=== PATIENT | female | born 1950 | race African-American/Black ===

== ENCOUNTER 2016-11-12 13:14 | Inpatient (IN) | payer OTHER ==
[2016-11-12 13:46] VITALS: BMI 36.2
--- NOTE | 2016-11-12 17:19 | HP ---
CIWA Score - CIWA Score Nausea/Vomitin-Mild Nausea/No Vomiting Muscle Tremors: 4-Moderate,w/Arms Extend Anxiety: 4-Mod. Anxious/Guarded Agitation: 4-Moderately Restless Paroxysmal Sweats: 1-Minimal Palms Moist Orientation: 0-Oriented Tacttile Disturbances: 0-None Auditory Disturbances: 0-None Visual Disturbances: 0-None Headache: 1-Very Mild CIWA-Ar Total Score: 15 Admission ROS S - HPI Chief Complaint: WITHDRAWAL SX Allergies/Adverse Reactions: Allergies Allergy/AdvReac Type Severity Reaction Status Date / Time tomato Allergy Severe Rash Verified 11/12/16 15:21 lactose Allergy Verified 11/12/16 15:21 No Known Drug Allergies Allergy Verified 11/12/16 15:21 History of Present Illness: 66 YEARS OLD FEMALE WITH LONG HISTORY OF ALCOHOL NICOTINE COCAINE DEPENDENCE, HAS HYPERTENSION, ASTHMA GERD, HYPERLIPIDEMIA, AND DEPRESSION IS ADMITTED TO DETOX Exam Limitations: No Limitations - Ebola screening Have you traveled outside of the country in the last 21 days: No Have you had contact with anyone from an Ebola affected area: No Have you been sick,other than usual withdrawal symptoms: No Do you have a fever: No - Review of Systems Constitutional: Changes in sleep, Weight Stable EENT: reports: No Symptoms Reported Respiratory: reports: SOB with Exertion Cardiac: reports: No Symptoms Reported GI: reports: Nausea, Poor Fluid Intake, Indigestion, Abdominal cramping : reports: No Symptoms Reported Musculoskeletal: reports: Back Pain, Joint Pain (RIGHT LEG X 3 YEARS) Integumentary: reports: No Symptoms Reported Neuro: reports: Tremors Endocrine: reports: No Symptoms Reported Hematology: reports: No Symptoms Reported Psychiatric: reports: Judgement Intact, Orientated x3, Anxious, Depressed Other Systems: Reviewed and Negative Patient History - Patient Medical History Hx Anemia: No Hx Asthma: Yes Hx Chronic Obstructive Pulmonary Disease (COPD): No 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) Hx Cardiac Disorders: No Hx Congestive Heart Failure: No Hx Hypertension: Yes Hx Hypercholesterolemia: Yes Hx Pacemaker: No HX Cerebrovascular Accident: Yes (2010) Hx Seizures: No Hx Dementia: No Hx Diabetes: No Hx Gastrointestinal Disorders: Yes (Hx of GERD) Hx Liver Disease: No Hx Genitourinary Disorders: No Hx Sexually Transmitted Disorders: No Hx Renal Disease (ESRD): No Hx Thyroid Disease: No Hx Human Immunodeficiency Virus (HIV): No (NEGATIVE HX) Hx Hepatitis C: No Hx Depression: Yes Hx Suicide Attempt: No Hx Bipolar Disorder: No Hx Schizophrenia: No - Patient Surgical History Past Surgical History: Yes Hx Neurologic Surgery: No Hx Cataract Extraction: No Hx Cardiac Surgery: No Hx Lung Surgery: No Hx Breast Surgery: No Hx Breast Biopsy: No Hx Abdominal Surgery: No Hx Appendectomy: No Hx Cholecystectomy: No Hx Genitourinary Surgery: No Hx Section: No Hx Orthopedic Surgery: Yes (R knee arthrocsopic sx) Hx Hysterectomy: No Other Surgical History: L neck sx for removal of lymph nodes in 2009 Anesthesia Reaction: No - PPD History Previous Implant?: Yes Documented Results: Negative w/proof Implanted On Prior [facility] Admission?: Yes Date: 12/19/15 Results: 0 mm PPD to be Administered?: No - Reproductive History Patient is a Female of Child Bearing Age (11 -55 yrs old): No Patient : No - Smoking Cessation Smoking history: Current every day smoker Have you smoked in the past 12 months: Yes Aproximately how many cigarettes per day: 20 Hx Chewing Tobacco Use: No Initiated information on smoking cessation: Yes 'Breaking Loose' booklet given: 11/12/16 - Substance & Tx. History Hx Alcohol Use: Yes Hx Substance Use: Yes Substance Use Type: Alcohol, Cocaine Hx Substance Use Treatment: Yes (12/16-12/22/15 [facility] - Substances Abused Alcohol Route: Oral Frequency: Daily Amount used: 1 pint vodka Age of first use: 18 Date of Last Use: 11/12/16 Cocaine Route: Inhalation Frequency: Daily Amount used: $80 Age of first use: 18 Date of Last Use: 11/12/16 Family Disease History - Family Disease History Family Disease History: CA: Father (), Sister, Other: Father, Mother ( DECESED/LIVER) Admission Physical Exam BHS - Vital Signs Vital Signs: Vital Signs - 24 hr 11/12/16 13:45 Temperature 98.1 F Pulse Rate 87 Respiratory 20 Rate Blood Pressure 151/82 - Physical General Appearance: Yes: Appropriately Dressed, Mild Distress, Tremorous, Irritable, Sweating, Anxious HEENTM: Yes: Hearing grossly Normal, Normal ENT Inspection, Normocephalic, Normal Voice Respiratory: Yes: Chest Non-Tender, No Respiratory Distress, No Accessory Muscle Use, Wheezing Neck: Yes: Supple, Trachea in good position Breast: Yes: Breasts Symetrical Cardiology: Yes: Regular Rhythm, Regular Rate, S1, S2 Abdominal: Yes: Non Tender, Soft Genitourinary: Yes: Within Normal Limits Back: Yes: Normal Inspection Musculoskeletal: Yes: full range of Motion, Gait Steady, Back pain, Muscle Pain (RIGHT KNEE) Extremities: Yes: Normal Range of Motion, Non-Tender, Tremors, Swelling (RIGHT KNEE) Neurological: Yes: Fully Oriented, Alert, Motor Strength 5/5, Normal Response, Depressed Affect Integumentary: Yes: Warm Lymphatic: Yes: Within Normal Limits - Diagnostic (1) Asthma Current Visit: Yes Status: Chronic Qualifiers: Asthma severity: mild persistent (2) Alcohol dependence with uncomplicated withdrawal Current Visit: Yes Status: Acute (3) Cocaine dependence, uncomplicated Current Visit: Yes Status: Chronic (4) Hypercholesteremia Current Visit: Yes Status: Chronic (5) Hypertension Current Visit: Yes Status: Chronic Qualifiers: Hypertension type: essential hypertension Qualified Code(s): I10 - Essential (primary) hypertension (6) GERD (gastroesophageal reflux disease) Current Visit: Yes Status: Chronic Qualifiers: Esophagitis presence: without esophagitis Qualified Code(s): K21.9 - Gastro-esophageal reflux disease without esophagitis (7) Right leg pain Current Visit: Yes Status: Chronic Cleared for Admission [facility] - Detox or Rehab [facility] Level of Care: Medically Managed Detox Regimen/Protocol: Librium [facility] Breath Alcohol Content Breath Alcohol Content: 0.008 Urine Pregancy Test - Result Urine Test Results: Negative- NO Line Present Urine Drug Screen - Results Drug Screen Negative: No Urine Drug Screen Results: PATRICIA-Cocaine
[2016-11-12] MEDS ORDERED: P-EPHED 60MG/TRIPROLIDI 2.5MG TABLET PO PRN (17:24)
[2016-11-12] MEDS ORDERED: NICOTINE POLACRILEX 4 MG GUM BC PRN (17:24)
[2016-11-12] MEDS ORDERED: LOPERAMIDE HCL 2 MG CAPSULE PO PRN (17:24)
[2016-11-12] MEDS ORDERED: MAGNESIUM CITRATE 300 ML BOTTLE PO PRN (17:24)
[2016-11-12] MEDS ORDERED: MAG HYDROX/AL HYDROX/SIMETH 30 ML UNIT-DOSE CUP PO PRN (17:24)
[2016-11-12] MEDS ORDERED: MAGNESIUM HYDROX 2400MG/30ML ORAL SUSPENSION 30 ML CUP PO PRN (17:24)
[2016-11-12] MEDS ORDERED: hydrOXYzine PAMOATE 50 MG CAPSULE (FP) PO PRN (17:24)
[2016-11-12] MEDS ORDERED: MENTHOL/PHENOL 1 EACH UD MM PRN (17:24)
[2016-11-12] MEDS ORDERED: NICOTINE 21 MG/24 HOURS TOPICAL PATCH TD PRN (17:24)
[2016-11-12] MEDS ORDERED: guaiFENesin/D-METHORPHAN HB 10 ML UNIT-DOSE CUPS PO PRN (17:24)
[2016-11-12] MEDS ORDERED: chlordiazePOXIDE HCL 25 MG CAPSULE PO PRN (17:24)
[2016-11-12] MEDS ORDERED: diphenhydrAMINE HCL 50 MG CAPSULE PO PRN (17:24)
[2016-11-12] MEDS ORDERED: ALBUTEROL SO4 2.5/IPRATROPIUM 0.5 INH SOL 3 ML VIAL.NEB. NEB PRN (17:27)
[2016-11-12] MEDS ORDERED: ALBUTEROL SO4 6.7 GM HFA INHALER IH PRN (17:27)
[2016-11-12] MEDS ORDERED: ATORVASTATIN CA 20 MG TABLET (FP) ONE (21:31)
[2016-11-12 21:34] LABS: URINE APPEARANCE SL CLOUDY; URINE BILIRUBIN 1+ (NEGATIVE); URINE BLOOD NEGATIVE (NEGATIVE); URINE COLOR LT. YELLOW; URINE GLUCOSE (UA) NEGATIVE (NEGATIVE); URINE KETONE 1+ (NEGATIVE); URINE LEUK ESTERASE NEGATIVE (NEGATIVE); URINE NITRITE NEGATIVE (NEGATIVE); URINE PROTEIN NEGATIVE (NEGATIVE)
[2016-11-12] MEDS: METHYL SALICYLATE/MENTHOL OINT 30 GM TUBE TP SCH (22:32)
[2016-11-12] MEDS: RANITIDINE HCL 150 MG TABLET (FP) PO SCH (22:33)
[2016-11-12] MEDS: ATORVASTATIN CA 40 MG TABLET (FP) PO SCH (22:33)
[2016-11-12] MEDS: THIAMINE HCL 100 MG TABLET (FP) PO SCH (22:33)
[2016-11-12] MEDS: chlordiazePOXIDE HCL 25 MG CAPSULE PO SCH (22:34)
[2016-11-13] MEDS: chlordiazePOXIDE HCL 25 MG CAPSULE PO SCH ×4 (06:13→22:31)
[2016-11-13] MEDS: ACETAMINOPHEN 325 MG TABLET (FP) PO PRN (06:13)
[2016-11-13 10:25] LABS: MCH 27.5 pg (25.7-33.7); MCHC 32.6 g/dl (32.0-36.0); MEAN CELL VOLUME 84.4 fl (80-96); MEAN PLT VOLUME 8.6 fl (7.5-11.1); PLATELET COUNT 222 K/MM3 (134-434); RDW 16.1 % (11.6-15.6)
[2016-11-13] MEDS: ASPIRIN 81 MG CHEWABLE TABLETS PO SCH (10:42)
[2016-11-13] MEDS: PRENATAL VITAMINS W/ FOLIC ACID TABLET (FP) PO SCH (10:42)
[2016-11-13] MEDS: amLODIPine BESYLATE 10 MG TABLET (FP) PO SCH (10:42)
[2016-11-13] MEDS: RANITIDINE HCL 150 MG TABLET (FP) PO SCH ×2 (10:42→22:30)
[2016-11-13] MEDS: METHYL SALICYLATE/MENTHOL OINT 30 GM TUBE TP SCH ×2 (10:43→23:31)
[2016-11-13 10:46] LABS: ALBUMIN 3.4 g/dl (3.4-5.0); ANION GAP 7 (8-16); CALCIUM 9.7 mg/dL (8.5-10.1); CO2 31 mmol/L (21-32); CREATININE 0.9 mg/dL (0.55-1.02); GLUCOSE,RANDOM 86 mg/dL (74-106); SGOT/AST 18 U/L (15-37); SGPT/ALT 23 U/L (12-78)
[2016-11-13 10:48] LABS: ALK PHOS 115 U/L (45-117); BILIRUBIN,TOTAL 0.7 mg/dL (0.2-1.0); TOT PROT 6.5 g/dl (6.4-8.2)
--- NOTE | 2016-11-13 12:07 | PN ---
BHS CIWA - CIWA Score Nausea/Vomitin Muscle Tremors: 4-Moderate,w/Arms Extend Anxiety: 4-Mod. Anxious/Guarded Agitation: 4-Moderately Restless Paroxysmal Sweats: 3 Orientation: 0-Oriented Tacttile Disturbances: 1-Very Mild Itch/Numbness Auditory Disturbances: 0-None Visual Disturbances: 0-None Headache: 1-Very Mild CIWA-Ar Total Score: 20 BHS Progress Note (SOAP) Subjective: nausea, sweats, itnerrupted sleep, anxiety, tremors Objective: 11/13/16 12:06 Vital Signs - 8 hr 11/13/16 11/13/16 06:00 10:26 Temperature 97.7 F 96.8 F L Pulse Rate 61 77 Respiratory 18 18 Rate Blood Pressure 126/77 130/76 Laboratory Tests 11/12/16 11/13/16 11/13/16 21:20 07:00 07:00 WBC 4.0 RBC 4.55 Hgb 12.5 Hct 38.4 MCV 84.4 MCH 27.5 MCHC 32.6 RDW 16.1 H Plt Count 222 MPV 8.6 Sodium 145 Potassium 4.0 Chloride 107 Carbon Dioxide 31 Anion Gap 7 L BUN 11 Creatinine 0.9 Creat Clearance w eGFR > 60 Random Glucose 86 Calcium 9.7 Total Bilirubin 0.7 D AST 18 ALT 23 Alkaline Phosphatase 115 Total Protein 6.5 Albumin 3.4 Urine Color Lt. yellow Urine Appearance Sl cloudy Urine pH 6.0 Ur Specific [place] 1.020 Urine Protein Negative Urine Glucose (UA) Negative Urine Ketones 1+ H Urine Blood Negative Urine Nitrite Negative Urine Bilirubin 1+ H Urine Urobilinogen 1.0 Ur Leukocyte Esterase Negative Assessment: 11/13/16 12:07 withdrawal sx Plan: cont detox, fluids
--- NOTE | 2016-11-13 12:55 | EKG ---
Test Reason : Blood Pressure : / mmHG Vent. Rate : 066 BPM Atrial Rate : 066 BPM P-R Int : 174 ms QRS Dur : 070 ms QT Int : 366 ms P-R-T Axes : 066 042 008 degrees QTc Int : 383 ms NORMAL SINUS RHYTHM ATRIAL ABNORMALITY NONSPECIFIC ST AND T WAVE ABNORMALITY ABNORMAL ECG NO PREVIOUS ECGS AVAILABLE REPEAT EKG IF CLINICALLY INDICATED Confirmed by MINA VIRGEN MD ([id number]) on 11/13/2016 12:55:31 PM Referred By: Reji Small Confirmed By:IMNA VIRGEN MD
[2016-11-13] MEDS: PANTOPRAZOLE 40 MG TABLET (FP) PO SCH (15:08)
--- NOTE | 2016-11-13 15:52 | CONSULT ---
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 Substance Abuse History: Confirmed by patient. Smoking Cessation. Smoking history: Current every day smoker. Have you smoked in the past 12 months: Yes. Aproximately how many cigarettes per day: 20. Hx Chewing Tobacco Use: No. Initiated information on smoking cessation: Yes. 'Breaking Loose' booklet given : 11/12/16. - Substance & Tx. History. Hx Alcohol Use: Yes. Hx Substance Use : Yes. Substance Use Type: Alcohol, Cocaine. Hx Substance Use Treatment: Yes ( 12/16-12/22/15 [facility]). - Substances Abused. Alcohol. Route: Oral. Frequency: Daily. Amount used: 1 pint vodka. Age of first use: 18. Date of Last Use: 11/12/16. Cocaine. Route: Inhalation. Frequency: Daily. Amount used: $80. Age of first use: 18. 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 Psychiatric History: No reported history of psychiatric hospitalizations.Patient admits to the diagnosis of Major Depressive Disorder.She used to attend psychiatric OPD care at [facility] clinic four years ago.Prescribed citalopram 20 mg/day.Ms Hutchinson indicates that she has been lost to follow up " for some time ",a reference to 3-4 weeks of non -adherence to medications.No OPD care provider at this time.Patient is known to [facility] (resided there from 2003 to 2008).No history of suicide attempts ( self-report). Physical/Sexual Abuse/Trauma History: Patient denies history of sexual abuse. Additional Comment: Urine Drug Screen Results: PATRICIA-Cocaine.Noted. Mental Status Exam - Mental Status Exam Alert and Oriented to: Time, Place, Person Cognitive Function: Good Patient Appearance: Well Groomed Mood: Hopeful, Euthymic (pleasant and well-mannered) Affect: Appropriate, Normal Range Patient Behavior: Appropriate, Cooperative Speech Pattern: Clear, Slurred (slightly slurred from past CVA) Voice Loudness: Normal Thought Process: Intact, Goal Oriented Thought Disorder: Not Present Hallucinations: Denies Suicidal Ideation: Denies Homicidal Ideation: Denies Insight/Judgement: Poor Sleep: Well Appetite: Good Gait/Station: Normal Psychiatric Findings - Problem List (Mittie 1, 2,3) (1) Alcohol dependence with uncomplicated withdrawal Current Visit: Yes Status: Acute (2) Cocaine dependence, uncomplicated Current Visit: Yes Status: Acute (3) Nicotine dependence Current Visit: Yes Status: Acute (4) Drug-induced mood disorder Current Visit: Yes Status: Acute (5) Depressive disorder Current Visit: Yes Status: Chronic (6) Asthma Current Visit: Yes Status: Chronic Qualifiers: Asthma severity: mild persistent (7) GERD (gastroesophageal reflux disease) Current Visit: Yes Status: Chronic Qualifiers: Esophagitis presence: without esophagitis Qualified Code(s): K21.9 - Gastro-esophageal reflux disease without esophagitis (8) Hypercholesteremia Current Visit: Yes Status: Chronic (9) Hypertension Current Visit: Yes Status: Chronic Qualifiers: Hypertension type: essential hypertension Qualified Code(s): I10 - Essential (primary) hypertension (10) Right leg pain Current Visit: Yes Status: Chronic (11) Cancer Current Visit: No Status: Chronic - Initial Treatment Plan Initial Treatment Plan: Psychoeducation.Detoxification.Citalopram 20 mg po daily (confirmed by script dated 09/06/16 at [facility]).Side effects/ benfits discussed with patient.She agrees with this careplan.Observation.
[2016-11-13] MEDS ORDERED: ATORVASTATIN CA 20 MG TABLET (FP) ONE (21:22)
[2016-11-13] MEDS: THIAMINE HCL 100 MG TABLET (FP) PO SCH (22:30)
[2016-11-13] MEDS: ATORVASTATIN CA 40 MG TABLET (FP) PO SCH (22:31)
[2016-11-14] MEDS: chlordiazePOXIDE HCL 25 MG CAPSULE PO SCH ×3 (05:39→18:12)
[2016-11-14] MEDS: ACETAMINOPHEN 325 MG TABLET (FP) PO PRN (05:44)
[2016-11-14] MEDS: RANITIDINE HCL 150 MG TABLET (FP) PO SCH ×2 (10:43→22:25)
[2016-11-14] MEDS: ASPIRIN 81 MG CHEWABLE TABLETS PO SCH (10:43)
[2016-11-14] MEDS: amLODIPine BESYLATE 10 MG TABLET (FP) PO SCH (10:43)
[2016-11-14] MEDS: CITALOPRAM HYDROBROMIDE 20 MG TABLET (FP) PO SCH (10:43)
[2016-11-14] MEDS: PANTOPRAZOLE 40 MG TABLET (FP) PO SCH (10:43)
[2016-11-14] MEDS: PRENATAL VITAMINS W/ FOLIC ACID TABLET (FP) PO SCH (10:43)
--- NOTE | 2016-11-14 10:43 | PN ---
S CIWA - CIWA Score Nausea/Vomitin Muscle Tremors: 4-Moderate,w/Arms Extend Anxiety: 4-Mod. Anxious/Guarded Agitation: 4-Moderately Restless Paroxysmal Sweats: 3 Orientation: 0-Oriented Tacttile Disturbances: 1-Very Mild Itch/Numbness Auditory Disturbances: 0-None Visual Disturbances: 0-None Headache: 1-Very Mild CIWA-Ar Total Score: 20 BHS Progress Note (SOAP) Subjective: nausea, sweats, interrupted sleep,anxiety, tremors Objective: 11/14/16 10:42 Vital Signs - 8 hr 11/14/16 11/14/16 03:30 06:30 Temperature 97.3 F L Pulse Rate 75 Respiratory 18 18 Rate Blood Pressure 133/78 Laboratory Tests 11/12/16 11/13/16 11/13/16 21:20 07:00 07:00 WBC 4.0 RBC 4.55 Hgb 12.5 Hct 38.4 MCV 84.4 MCH 27.5 MCHC 32.6 RDW 16.1 H Plt Count 222 MPV 8.6 Sodium 145 Potassium 4.0 Chloride 107 Carbon Dioxide 31 Anion Gap 7 L BUN 11 Creatinine 0.9 Creat Clearance w eGFR > 60 Random Glucose 86 Calcium 9.7 Total Bilirubin 0.7 D AST 18 ALT 23 Alkaline Phosphatase 115 Total Protein 6.5 Albumin 3.4 Urine Color Lt. yellow Urine Appearance Sl cloudy Urine pH 6.0 Ur Specific [place] 1.020 Urine Protein Negative Urine Glucose (UA) Negative Urine Ketones 1+ H Urine Blood Negative Urine Nitrite Negative Urine Bilirubin 1+ H Urine Urobilinogen 1.0 Ur Leukocyte Esterase Negative RPR Titer 11/13/16 07:00 WBC RBC Hgb Hct MCV MCH MCHC RDW Plt Count MPV Sodium Potassium Chloride Carbon Dioxide Anion Gap BUN Creatinine Creat Clearance w eGFR Random Glucose Calcium Total Bilirubin AST ALT Alkaline Phosphatase Total Protein Albumin Urine Color Urine Appearance Urine pH Ur Specific [place] Urine Protein Urine Glucose (UA) Urine Ketones Urine Blood Urine Nitrite Urine Bilirubin Urine Urobilinogen Ur Leukocyte Esterase RPR Titer Nonreactive Assessment: 11/14/16 10:43 alyson barnett Plan: cont detox
[2016-11-14] MEDS: METHYL SALICYLATE/MENTHOL OINT 30 GM TUBE TP SCH ×2 (10:44→22:24)
[2016-11-14] MEDS ORDERED: ATORVASTATIN CA 20 MG TABLET (FP) ONE (21:52)
[2016-11-14] MEDS: traZODone HCL 50 MG TABLET (FP) PO SCH (22:25)
[2016-11-14] MEDS: chlordiazePOXIDE 5 MG CAPSULE PO SCH (22:25)
[2016-11-14] MEDS: THIAMINE HCL 100 MG TABLET (FP) PO SCH (22:25)
[2016-11-14] MEDS: ZOLPIDEM TARTRATE 5 MG TABLET PO PRN (22:25)
[2016-11-14] MEDS: ATORVASTATIN CA 40 MG TABLET (FP) PO SCH (22:26)
[2016-11-15] MEDS: chlordiazePOXIDE 5 MG CAPSULE PO SCH ×3 (06:15→17:49)
--- NOTE | 2016-11-15 09:50 | PN ---
BHS Progress Note (SOAP) Subjective: nausea, sweats, interrupted sleep, anxiety, tremors, requesting cane to ambulate with Objective: 11/15/16 09:49 Vital Signs - 24 hr 11/14/16 11/14/16 11/14/16 10:44 14:30 18:17 Temperature 97.7 F 97.5 F L 97.9 F Pulse Rate 72 83 73 Respiratory 18 18 18 Rate Blood Pressure 128/74 136/73 114/77 11/14/16 11/15/16 11/15/16 23:21 03:30 06:49 Temperature 97.9 F 97.2 F L Pulse Rate 97 H 90 Respiratory 20 18 20 Rate Blood Pressure 110/78 116/86 11/15/16 09:39 Temperature 96.3 F L Pulse Rate 97 H Respiratory 18 Rate Blood Pressure 112/72 Laboratory Tests 11/12/16 11/13/16 11/13/16 21:20 07:00 07:00 WBC 4.0 RBC 4.55 Hgb 12.5 Hct 38.4 MCV 84.4 MCH 27.5 MCHC 32.6 RDW 16.1 H Plt Count 222 MPV 8.6 Sodium 145 Potassium 4.0 Chloride 107 Carbon Dioxide 31 Anion Gap 7 L BUN 11 Creatinine 0.9 Creat Clearance w eGFR > 60 Random Glucose 86 Calcium 9.7 Total Bilirubin 0.7 D AST 18 ALT 23 Alkaline Phosphatase 115 Total Protein 6.5 Albumin 3.4 Urine Color Lt. yellow Urine Appearance Sl cloudy Urine pH 6.0 Ur Specific [place] 1.020 Urine Protein Negative Urine Glucose (UA) Negative Urine Ketones 1+ H Urine Blood Negative Urine Nitrite Negative Urine Bilirubin 1+ H Urine Urobilinogen 1.0 Ur Leukocyte Esterase Negative RPR Titer 11/13/16 07:00 WBC RBC Hgb Hct MCV MCH MCHC RDW Plt Count MPV Sodium Potassium Chloride Carbon Dioxide Anion Gap BUN Creatinine Creat Clearance w eGFR Random Glucose Calcium Total Bilirubin AST ALT Alkaline Phosphatase Total Protein Albumin Urine Color Urine Appearance Urine pH Ur Specific [place] Urine Protein Urine Glucose (UA) Urine Ketones Urine Blood Urine Nitrite Urine Bilirubin Urine Urobilinogen Ur Leukocyte Esterase RPR Titer Nonreactive Assessment: 11/15/16 09:49 withdrawal sx Plan: cont detox, order cane
[2016-11-15] MEDS: amLODIPine BESYLATE 10 MG TABLET (FP) PO SCH (10:45)
[2016-11-15] MEDS: ASPIRIN 81 MG CHEWABLE TABLETS PO SCH (10:46)
[2016-11-15] MEDS: PRENATAL VITAMINS W/ FOLIC ACID TABLET (FP) PO SCH (10:46)
[2016-11-15] MEDS: PANTOPRAZOLE 40 MG TABLET (FP) PO SCH (10:46)
[2016-11-15] MEDS: CITALOPRAM HYDROBROMIDE 20 MG TABLET (FP) PO SCH (10:46)
[2016-11-15] MEDS: METHYL SALICYLATE/MENTHOL OINT 30 GM TUBE TP SCH ×2 (10:48→22:35)
[2016-11-15] MEDS: RANITIDINE HCL 150 MG TABLET (FP) PO SCH (10:49)
[2016-11-15] MEDS: traZODone HCL 50 MG TABLET (FP) PO SCH (22:34)
[2016-11-15] MEDS: chlordiazePOXIDE HCL 10 MG CAPSULE PO SCH (22:34)
[2016-11-15] MEDS: ZOLPIDEM TARTRATE 5 MG TABLET PO PRN (22:34)
[2016-11-15] MEDS: THIAMINE HCL 100 MG TABLET (FP) PO SCH (22:34)
[2016-11-15] MEDS: ATORVASTATIN CA 40 MG TABLET (FP) PO SCH (22:34)
[2016-11-16] MEDS: chlordiazePOXIDE HCL 10 MG CAPSULE PO SCH (05:04)
[2016-11-16 06:26] VITALS: BP 103/70; PULSE 87; TEMP 96.4
--- NOTE | 2016-11-16 08:55 | DS ---
[facility] Detox Discharge Summary Admission Date: 11/12/16 Discharge Date: 11/16/16 - History Present History: Alcohol Dependence, Cocaine Dependence - Physical Exam Results Vital Signs: Vital Signs Temperature 96.4 F L 11/16/16 06:00 Pulse Rate 87 11/16/16 06:00 Respiratory Rate 18 11/16/16 06:00 Blood Pressure 103/70 11/16/16 06:00 O2 Sat by Pulse Oximetry (%) - Treatment Hospital Course: Detox Protocol Followed, Detoxed Safely, Responded well, Discharged Condition Good, Rehab Referral Accepted - Medication Discharge Medications: Ambulatory Orders Albuterol Sulfate Inhaler - [Ventolin Hfa Inhaler -] 2 inh PO Q4H PRN 11/07/14 Omeprazole [Prilosec] 40 mg PO DAILY 11/07/14 Amlodipine Besylate [Norvasc -] 10 mg PO DAILY #30 tablet 11/11/14 Aspirin [ASA -] 81 mg PO DAILY #30 tab.chew 11/11/14 Acetaminophen [Tylenol -] 500 mg PO Q6H PRN 12/17/15 Atorvastatin Ca [Lipitor] 40 mg PO HS 12/17/15 Multivitamins [Tab-A-Vit -] 1 tab PO DAILY 12/17/15 Citalopram Hydrobromide [Celexa -] 20 mg PO DAILY #30 tablet 12/18/15 Citalopram Hydrobromide [Celexa -] 20 mg PO DAILY #30 tablet 11/13/16 - Diagnosis (1) Alcohol dependence with uncomplicated withdrawal Current Visit: Yes Status: Chronic (2) Cocaine dependence, uncomplicated Current Visit: Yes Status: Chronic (3) Drug-induced mood disorder Current Visit: Yes Status: Acute (4) Nicotine dependence Current Visit: Yes Status: Chronic Qualifiers: Nicotine product type: cigarettes Substance use status: uncomplicated Qualified Code(s): F17.210 - Nicotine dependence, cigarettes, uncomplicated (5) Asthma Current Visit: Yes Status: Chronic Qualifiers: Asthma severity: mild persistent (6) Depressive disorder Current Visit: Yes Status: Chronic (7) GERD (gastroesophageal reflux disease) Current Visit: Yes Status: Chronic Qualifiers: Esophagitis presence: without esophagitis Qualified Code(s): K21.9 - Gastro-esophageal reflux disease without esophagitis (8) Hypercholesteremia Current Visit: Yes Status: Chronic (9) Hypertension Current Visit: Yes Status: Chronic Qualifiers: Hypertension type: essential hypertension Qualified Code(s): I10 - Essential (primary) hypertension (10) Right leg pain Current Visit: Yes Status: Chronic (11) Alcohol-induced mood disorder Current Visit: No Status: Chronic (12) Cancer Current Visit: No Status: Chronic (13) TIA (transient ischemic attack) Current Visit: No Status: Chronic (14) Lower extremity injury Current Visit: No Status: Suspected - AMA Did Patient Leave Against Medical Advice: No
[2016-11-16] MEDS: PRENATAL VITAMINS W/ FOLIC ACID TABLET (FP) PO SCH (09:53)
[2016-11-16] MEDS: CITALOPRAM HYDROBROMIDE 20 MG TABLET (FP) PO SCH (09:53)
[2016-11-16] MEDS: PANTOPRAZOLE 40 MG TABLET (FP) PO SCH (09:53)
[2016-11-16] MEDS: amLODIPine BESYLATE 10 MG TABLET (FP) PO SCH (09:53)
[2016-11-16] MEDS: ASPIRIN 81 MG CHEWABLE TABLETS PO SCH (09:53)
[2016-11-16] MEDS: METHYL SALICYLATE/MENTHOL OINT 30 GM TUBE TP SCH (09:55)
== END 2016-11-16 10:40 | disposition home or self-care (01) | DRG 774 ==
LOC: YASAS 13:14 → Y6N 16:04
PROVIDERS: ADMIT Internal Medicine Addiction Medicine; ATTEND Internal Medicine Addiction Medicine
PROC: HZ2ZZZZ Detoxification Services for Substance Abuse Treatment (ICD-10-PCS; principal; 2016-11-12)
DX: F10.230 Alcohol dependence with withdrawal, uncomplicated (principal); F10.24 Alcohol dependence with alcohol-induced mood disorder; F14.20 Cocaine dependence, uncomplicated; F17.210 Nicotine dependence, cigarettes, uncomplicated; F19.24 Other psychoactive substance dependence with psychoactive substance-induced mood disorder; F32.9 Major depressive disorder, single episode, unspecified; J45.909 Unspecified asthma, uncomplicated; K21.9 Gastro-esophageal reflux disease without esophagitis; E78.5 Hyperlipidemia, unspecified; I10 Essential (primary) hypertension; M79.604 Pain in right leg; G89.29 Other chronic pain; I69.351 Hemiplegia and hemiparesis following cerebral infarction affecting right dominant side; Z85.828 Personal history of other malignant neoplasm of skin; Z92.21 Personal history of antineoplastic chemotherapy; Z92.3 Personal history of irradiation; Z91.018 Allergy to other foods; Z91.011 Allergy to milk products
CPT/HCPCS: 36415; 80053; 81003; 85027; 86593; 93005; 93010

== ENCOUNTER 2017-08-10 12:36 | Inpatient (IN) | payer OTHER ==
[2017-08-10 13:33] VITALS: BMI 37.0
--- NOTE | 2017-08-10 14:20 | HP ---
CIWA Score - CIWA Score Nausea/Vomitin-Mild Nausea/No Vomiting Muscle Tremors: 4-Moderate,w/Arms Extend Anxiety: 4-Mod. Anxious/Guarded Agitation: 4-Moderately Restless Paroxysmal Sweats: 1-Minimal Palms Moist Orientation: 0-Oriented Tacttile Disturbances: 2-Mild Itch/Numbness/Burn Auditory Disturbances: 0-None Visual Disturbances: 0-None Headache: 2-Mild CIWA-Ar Total Score: 18 Admission ROS S - HPI Chief Complaint: ALCOHOL WITHDRAWAL SX Allergies/Adverse Reactions: Allergies Allergy/AdvReac Type Severity Reaction Status Date / Time tomato Allergy Severe Rash Verified 08/10/17 14:25 No Known Drug Allergies Allergy Verified 08/10/17 14:25 lactose AdvReac DIARRHEA Verified 08/10/17 14:25 History of Present Illness: 67 YEARS OLD FEMALE WITH LONG HISTORY OF ALCOHOL COCAINE NICOTINE DEPENDENCE HAS GERD HYPERCHOLESTEROL ASTHMA AND BIPOLAR II IS ADMITTED TO DETOX Exam Limitations: No Limitations - Ebola screening Have you traveled outside of the country in the last 21 days: No Have you had contact with anyone from an Ebola affected area: No Have you been sick,other than usual withdrawal symptoms: No Do you have a fever: No - Review of Systems Constitutional: Weight Stable EENT: reports: Blurred Vision (EYE GLASSES) Respiratory: reports: No Symptoms reported Cardiac: reports: No Symptoms Reported GI: reports: Nausea, Poor Fluid Intake, Indigestion, Abdominal cramping : reports: No Symptoms Reported Musculoskeletal: reports: Muscle Pain (RIGHT KNEE) Integumentary: reports: No Symptoms Reported Neuro: reports: Tremors Endocrine: reports: No Symptoms Reported Hematology: reports: No Symptoms Reported Psychiatric: reports: Judgement Intact, Orientated x3, Anxious, Depressed Other Systems: Reviewed and Negative Patient History - Patient Medical History Hx Anemia: No Hx Asthma: Yes Hx Chronic Obstructive Pulmonary Disease (COPD): No 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) Hx Cardiac Disorders: No Hx Congestive Heart Failure: No Hx Hypertension: Yes Hx Hypercholesterolemia: Yes Hx Pacemaker: No HX Cerebrovascular Accident: Yes (2010) Hx Seizures: No Hx Dementia: No Hx Diabetes: No Hx Gastrointestinal Disorders: Yes (Hx of GERD) Hx Liver Disease: No Hx Genitourinary Disorders: No Hx Sexually Transmitted Disorders: No Hx Renal Disease (ESRD): No Hx Thyroid Disease: No Hx Human Immunodeficiency Virus (HIV): No (NEGATIVE HX) Hx Hepatitis C: No Hx Depression: Yes Hx Suicide Attempt: No Hx Bipolar Disorder: No Hx Schizophrenia: No - Patient Surgical History Past Surgical History: Yes Hx Neurologic Surgery: No Hx Cataract Extraction: No Hx Cardiac Surgery: No Hx Lung Surgery: No Hx Breast Surgery: No Hx Breast Biopsy: No Hx Abdominal Surgery: No Hx Appendectomy: No Hx Cholecystectomy: No Hx Genitourinary Surgery: No Hx Section: No Hx Orthopedic Surgery: Yes (R knee arthrocsopic sx 2015) Hx Hysterectomy: No Other Surgical History: L neck sx for removal of lymph nodes in 2009 Anesthesia Reaction: No - PPD History Previous Implant?: Yes Documented Results: Negative w/proof Implanted On Prior [facility] Admission?: Yes Date: 12/19/15 Results: 0 mm PPD to be Administered?: Yes - Reproductive History Patient is a Female of Child Bearing Age (11 -55 yrs old): No Last Menstrual Period: 08/10/02 Patient : No - Smoking Cessation Smoking history: Current every day smoker Have you smoked in the past 12 months: Yes Aproximately how many cigarettes per day: 20 Cigars Per Day: 0 Hx Chewing Tobacco Use: No Initiated information on smoking cessation: Yes 'Breaking Loose' booklet given: 08/10/17 - Substance & Tx. History Hx Alcohol Use: Yes Hx Substance Use: Yes Substance Use Type: Alcohol, Cocaine Hx Substance Use Treatment: Yes (11/2016 [facility]) Family Disease History - Family Disease History Family Disease History: CA: Father (), Sister, Other: Father, Mother ( DECESED/LIVER) Admission Physical Exam S - Vital Signs Vital Signs: Vital Signs - 24 hr 08/10/17 13:31 Temperature 96.8 F L Pulse Rate 71 Respiratory 18 Rate Blood Pressure 142/76 - Physical General Appearance: Yes: Nourished, Appropriately Dressed, Moderate Distress HEENTM: Yes: Hearing grossly Normal, Normocephalic, Normal Voice, Other (EYE GLASSES) Respiratory: Yes: Chest Non-Tender, Lungs Clear, Normal Breath Sounds, No Respiratory Distress, No Accessory Muscle Use Neck: Yes: Supple, Trachea in good position Breast: Yes: Breasts Symetrical, No Discharge Cardiology: Yes: Regular Rhythm, Regular Rate, S1, S2 Abdominal: Yes: Normal Bowel Sounds, Non Tender, Flat Genitourinary: Yes: Within Normal Limits Back: Yes: Normal Inspection Musculoskeletal: Yes: full range of Motion, Gait Steady Extremities: Yes: Normal Inspection, Normal Range of Motion, Non-Tender Neurological: Yes: Fully Oriented, Alert, Motor Strength 5/5, Normal Response, Depressed Affect Integumentary: Yes: Warm Lymphatic: Yes: Within Normal Limits - Diagnostic (1) Asthma Current Visit: Yes Status: Chronic Qualifiers: Asthma severity: mild Asthma persistence: intermittent Asthma complication type: with status asthmaticus Qualified Code(s): J45.22 - Mild intermittent asthma with status asthmaticus (2) GERD (gastroesophageal reflux disease) Current Visit: Yes Status: Chronic Qualifiers: Esophagitis presence: without esophagitis Qualified Code(s): K21.9 - Gastro -esophageal reflux disease without esophagitis (3) Hypercholesteremia Current Visit: Yes Status: Chronic (4) Hypertension Current Visit: Yes Status: Chronic Qualifiers: Hypertension type: essential hypertension Qualified Code(s): I10 - Essential (primary) hypertension (5) Nicotine dependence Current Visit: Yes Status: Acute Qualifiers: Nicotine product type: cigarettes Substance use status: in withdrawal Qualified Code(s): F17.213 - Nicotine dependence, cigarettes, with withdrawal (6) Sleep apnea Current Visit: No Status: Chronic Qualifiers: Sleep apnea type: unspecified type Qualified Code(s): G47.30 - Sleep apnea , unspecified Comment: USING MACHINE AT HOME PERIODICALLY "NOT EVERYDAY" Cleared for Admission S - Detox or Rehab [facility] Level of Care: Medically Managed Detox Regimen/Protocol: Librium [facility] Breath Alcohol Content Breath Alcohol Content: 0 Urine Pregancy Test - Result Urine Test Results: Negative- NO Line Present Urine Drug Screen - Results Drug Screen Negative: No Urine Drug Screen Results: PATRICIA-Cocaine Inpatient Rehab Admission - Initial Determination Are CD services needed?: Yes Free of communicable disease: Yes Not in need of hospitalization: Yes - Rehab Admission Criteria Previous failed treatment: Yes Poor recovery environment: Yes Comorbidities: Yes Lacks judgement: No Patient is meeting Inpatient Rehab admission criteria:: Yes
[2017-08-10] MEDS ORDERED: P-EPHED 60MG/TRIPROLIDI 2.5MG TABLET PO PRN (14:30)
[2017-08-10] MEDS ORDERED: MENTHOL/PHENOL 1 EACH UD MM PRN (14:30)
[2017-08-10] MEDS ORDERED: MAGNESIUM HYDROX 2400MG/30ML ORAL SUSPENSION 30 ML CUP PO PRN (14:30)
[2017-08-10] MEDS ORDERED: ACETAMINOPHEN 325 MG TABLET (FP) PO PRN (14:30)
[2017-08-10] MEDS ORDERED: NICOTINE POLACRILEX 2 MG GUM BC PRN (14:30)
[2017-08-10] MEDS ORDERED: MAGNESIUM CITRATE 300 ML BOTTLE PO PRN (14:30)
[2017-08-10] MEDS ORDERED: IBUPROFEN 400 MG TABLET (FP) PO PRN (14:30)
[2017-08-10] MEDS ORDERED: LOPERAMIDE HCL 2 MG CAPSULE PO PRN (14:30)
[2017-08-10] MEDS ORDERED: MAG HYDROX/AL HYDROX/SIMETH 30 ML UNIT-DOSE CUP PO PRN (14:30)
[2017-08-10] MEDS ORDERED: guaiFENesin/D-METHORPHAN HB 10 ML UNIT-DOSE CUPS PO PRN (14:30)
[2017-08-10] MEDS ORDERED: ALBUTEROL SO4 18 GM HFA INHALER IH PRN (14:39)
[2017-08-10] MEDS ORDERED: cloNIDine HCL 0.1 MG TABLET PO PRN (14:43)
[2017-08-10] MEDS ORDERED: chlordiazePOXIDE HCL 25 MG CAPSULE PO PRN (15:51)
[2017-08-10] MEDS: NICOTINE 14 MG/24 HOURS TOPICAL PATCH TD SCH (17:27)
[2017-08-10] MEDS ORDERED: MELATONIN 5 MG TABLETS PO PRN (22:00)
[2017-08-10] MEDS: ATORVASTATIN CA 40 MG TABLET (FP) PO SCH (22:12)
[2017-08-10] MEDS: THIAMINE HCL 100 MG TABLET (FP) PO SCH (22:12)
[2017-08-10] MEDS: chlordiazePOXIDE HCL 25 MG CAPSULE PO SCH (22:12)
[2017-08-10] MEDS: RANITIDINE HCL 150 MG TABLET (FP) PO SCH (22:12)
[2017-08-11 01:15] LABS: URINE APPEARANCE SLCLOUDY; URINE BILIRUBIN NEGATIVE (<2.0 mg/dL); URINE BLOOD NEGATIVE (NEGATIVE); URINE COLOR YELLOW; URINE GLUCOSE (UA) NEGATIVE (NEGATIVE); URINE KETONE TRACE (NEGATIVE); URINE LEUK ESTERASE NEGATIVE (NEGATIVE); URINE NITRITE NEGATIVE (NEGATIVE); URINE PROTEIN NEGATIVE (NEGATIVE); URINE UROBILINOGEN 4.0 E.U/dl mg/dL (0.2-1.0)
[2017-08-11] MEDS: chlordiazePOXIDE HCL 25 MG CAPSULE PO SCH ×4 (05:56→22:08)
[2017-08-11 10:08] LABS: HEMATOCRIT 36.9 % (32.4-45.2); HEMOGLOBIN 12.2 GM/dL (10.7-15.3); MCH 28.5 pg (25.7-33.7); MCHC 33.1 g/dl (32.0-36.0); MEAN CELL VOLUME 86.2 fl (80-96); MEAN PLT VOLUME 8.9 fl (7.5-11.1); PLATELET COUNT 266 K/MM3 (134-434); RBC 4.28 M/mm3 (3.60-5.2); WHITE BLOOD COUNT 4.8 K/mm3 (4.0-10.0)
[2017-08-11] MEDS: PRENATAL VITAMINS W/ FOLIC ACID TABLET (FP) PO SCH (10:12)
[2017-08-11] MEDS: NICOTINE 14 MG/24 HOURS TOPICAL PATCH TD SCH (10:12)
[2017-08-11] MEDS: RANITIDINE HCL 150 MG TABLET (FP) PO SCH ×2 (10:12→22:08)
[2017-08-11] MEDS: amLODIPine BESYLATE 10 MG TABLET (FP) PO SCH (10:12)
[2017-08-11] MEDS: ASPIRIN 81 MG CHEWABLE TABLETS PO SCH (10:12)
[2017-08-11 10:24] LABS: BLOOD UREA NITROGEN 15 mg/dL (7-18)
--- NOTE | 2017-08-11 10:26 | PN ---
S CIWA - CIWA Score Nausea/Vomitin-Mild Nausea/No Vomiting Muscle Tremors: 4-Moderate,w/Arms Extend Anxiety: 4-Mod. Anxious/Guarded Agitation: 4-Moderately Restless Paroxysmal Sweats: 1-Minimal Palms Moist Orientation: 0-Oriented Tacttile Disturbances: 1-Very Mild Itch/Numbness Auditory Disturbances: 0-None Visual Disturbances: 0-None Headache: 0-None Present CIWA-Ar Total Score: 15 [facility] Progress Note (SOAP) Subjective: sweat tremor trouble sleep at night anxiety irritable restlessness Objective: 08/11/17 10:25 Vital Signs Temperature 96.1 F L 08/11/17 07:50 Pulse Rate 64 08/11/17 07:50 Respiratory Rate 18 08/11/17 07:50 Blood Pressure 145/82 08/11/17 07:50 O2 Sat by Pulse Oximetry (%) Laboratory Last Values WBC 4.8 K/mm3 (4.0-10.0) 08/11/17 05:50 RBC 4.28 M/mm3 (3.60-5.2) 08/11/17 05:50 Hgb 12.2 GM/dL (10.7-15.3) 08/11/17 05:50 Hct 36.9 % (32.4-45.2) 08/11/17 05:50 MCV 86.2 fl (80-96) 08/11/17 05:50 MCH 28.5 pg (25.7-33.7) 08/11/17 05:50 MCHC 33.1 g/dl (32.0-36.0) 08/11/17 05:50 RDW 17.0 % (11.6-15.6) H 08/11/17 05:50 Plt Count 266 K/MM3 (134-434) 08/11/17 05:50 MPV 8.9 fl (7.5-11.1) 08/11/17 05:50 Urine Color Yellow 08/10/17 22:31 Urine Appearance Slcloudy 08/10/17 22:31 Urine pH 6.0 (5.0-8.0) 08/10/17 22:31 Ur Specific [place] 1.020 (1.001-1.035) 08/10/17 22:31 Urine Protein Negative (NEGATIVE) 08/10/17 22:31 Urine Glucose (UA) Negative (NEGATIVE) 08/10/17 22:31 Urine Ketones Trace (NEGATIVE) H 08/10/17 22:31 Urine Blood Negative (NEGATIVE) 08/10/17 22:31 Urine Nitrite Negative (NEGATIVE) 08/10/17 22:31 Urine Bilirubin Negative (<2.0 mg/dL) 08/10/17 22:31 Urine Urobilinogen 4.0 e.u/dl mg/dL (0.2-1.0) H 08/10/17 22:31 Ur Leukocyte Esterase Negative (NEGATIVE) 08/10/17 22:31 lab noted Assessment: 08/11/17 10:25 withdrawal sx Plan: continue detox
[2017-08-11 10:28] LABS: ALK PHOS 171 U/L (45-117); ANION GAP 6 (8-16); BILIRUBIN,TOTAL 0.4 mg/dL (0.2-1.0); CALCIUM 9.4 mg/dL (8.5-10.1); CHLORIDE 107 mmol/L (98-107); CO2 30 mmol/L (21-32); CREATININE 1.2 mg/dL (0.55-1.02); GLUCOSE,RANDOM 129 mg/dL (74-106); POTASSIUM 3.7 mmol/L (3.5-5.1); SGOT/AST 22 U/L (15-37); SGPT/ALT 28 U/L (12-78); SODIUM 143 mmol/L (136-145); TOT PROT 7.6 g/dl (6.4-8.2)
--- NOTE | 2017-08-11 11:32 | CONSULT ---
[facility] Psychiatric Consult - Data Date of interview: 08/11/17 Admission source: [facility] Identifying data: This is a 67 years old female, single mother of four, unemployed, on SSI, living with significant other,with no psychiatric hospitalization history, with long history of Alcohol, Cocaine and Nicotine dependence, reports withdrawal symptoms and seeking for detox. Substance Abuse History: - Smoking Cessation. Smoking history: Current every day smoker. Have you smoked in the past 12 months: Yes. Aproximately how many cigarettes per day: 20. Cigars Per Day: 0. Hx Chewing Tobacco Use: No. Initiated information on smoking cessation: Yes. 'Breaking Loose' booklet given : 08/10/17. - Substance & Tx. History. Hx Alcohol Use: Yes. Hx Substance Use : Yes. Substance Use Type: Alcohol, Cocaine. Hx Substance Use Treatment: Yes ( 11/2016 [facility]) Medical History: Asthma, GERD, Hypercholesterolemia, TIA history Psychiatric History: Patint reports history of depression and insomnia, reports taking prior to admission: Celexa 20 mg poqd. Seroquel 50mg po qhs Physical/Sexual Abuse/Trauma History: Denies Additional Comment: Celexa 20 mg poqd. Seroquel 50mg po qhs Mental Status Exam - Mental Status Exam Alert and Oriented to: Person Cognitive Function: Fair Patient Appearance: Well Groomed Mood: Apprehensive Affect: Mood Congruent Patient Behavior: Cooperative Speech Pattern: Appropriate Voice Loudness: Mildly Soft/Quiet Thought Process: Goal Oriented Thought Disorder: Being Controlled Hallucinations: Denies Suicidal Ideation: Denies Homicidal Ideation: Denies Insight/Judgement: Fair Sleep: Difficulty falling asleep Appetite: Weight gain Muscle strength/Tone: Mild Hypotonicity Gait/Station: Shuffling Additional Comments: Celexa 20 mg poqd. Seroquel 50mg po qhs Psychiatric Findings - Problem List (Leo 1, 2,3) (1) Alcohol dependence with uncomplicated withdrawal Current Visit: Yes Status: Acute (2) Nicotine dependence Current Visit: Yes Status: Acute Qualifiers: Nicotine product type: cigarettes Substance use status: in withdrawal Qualified Code(s): F17.213 - Nicotine dependence, cigarettes, with withdrawal (3) Drug-induced mood disorder Current Visit: No Status: Acute (4) Alcohol dependence with uncomplicated withdrawal Current Visit: No Status: Chronic (5) Alcohol-induced mood disorder Current Visit: No Status: Chronic (6) Cocaine dependence, uncomplicated Current Visit: No Status: Chronic - Initial Treatment Plan Initial Treatment Plan: Celexa 20 mg poqd. Seroquel 50mg po qhs
[2017-08-11] MEDS: CITALOPRAM HYDROBROMIDE 20 MG TABLET (FP) PO SCH (11:59)
--- NOTE | 2017-08-11 13:34 | EKG ---
Test Reason : Blood Pressure : / mmHG Vent. Rate : 065 BPM Atrial Rate : 065 BPM P-R Int : 156 ms QRS Dur : 070 ms QT Int : 394 ms P-R-T Axes : 061 037 022 degrees QTc Int : 409 ms NORMAL SINUS RHYTHM POSSIBLE LEFT ATRIAL ENLARGEMENT CANNOT RULE OUT ANTERIOR INFARCT , AGE UNDETERMINED ABNORMAL ECG WHEN COMPARED WITH ECG OF 12-NOV-2016 17:18, NO SIGNIFICANT CHANGE WAS FOUND Confirmed by SASHA ASENCIO, PEDRO ([id number]) on 08/11/2017 1:34:38 PM Referred By: Confirmed By:PEDRO BAEZ MD
[2017-08-11] MEDS: ATORVASTATIN CA 40 MG TABLET (FP) PO SCH (22:08)
[2017-08-11] MEDS: THIAMINE HCL 100 MG TABLET (FP) PO SCH (22:08)
[2017-08-11] MEDS: QUEtiapine FUMARATE 50 MG TABLET PO SCH (22:08)
[2017-08-12] MEDS: chlordiazePOXIDE HCL 25 MG CAPSULE PO SCH ×3 (05:40→17:05)
[2017-08-12] MEDS: RANITIDINE HCL 150 MG TABLET (FP) PO SCH ×2 (07:56→17:05)
[2017-08-12] MEDS: NICOTINE 14 MG/24 HOURS TOPICAL PATCH TD SCH (10:07)
[2017-08-12] MEDS: amLODIPine BESYLATE 10 MG TABLET (FP) PO SCH (10:07)
[2017-08-12] MEDS: CITALOPRAM HYDROBROMIDE 20 MG TABLET (FP) PO SCH (10:07)
[2017-08-12] MEDS: PRENATAL VITAMINS W/ FOLIC ACID TABLET (FP) PO SCH (10:07)
[2017-08-12] MEDS: ASPIRIN 81 MG CHEWABLE TABLETS PO SCH (10:07)
--- NOTE | 2017-08-12 10:51 | PN ---
S CIWA - CIWA Score Nausea/Vomitin-Mild Nausea/No Vomiting Muscle Tremors: 4-Moderate,w/Arms Extend Anxiety: 3 Agitation: 3 Paroxysmal Sweats: 1-Minimal Palms Moist Orientation: 0-Oriented Tacttile Disturbances: 0-None Auditory Disturbances: 0-None Visual Disturbances: 0-None Headache: 0-None Present CIWA-Ar Total Score: 12 BHS Progress Note (SOAP) Subjective: sweat tremor anxiety irritable restlessness Objective: 08/12/17 10:48 Vital Signs Temperature 96.1 F L 08/12/17 09:16 Pulse Rate 67 08/12/17 09:16 Respiratory Rate 18 08/12/17 09:16 Blood Pressure 117/72 08/12/17 09:16 O2 Sat by Pulse Oximetry (%) Laboratory Last Values WBC 4.8 K/mm3 (4.0-10.0) 08/11/17 05:50 RBC 4.28 M/mm3 (3.60-5.2) 08/11/17 05:50 Hgb 12.2 GM/dL (10.7-15.3) 08/11/17 05:50 Hct 36.9 % (32.4-45.2) 08/11/17 05:50 MCV 86.2 fl (80-96) 08/11/17 05:50 MCH 28.5 pg (25.7-33.7) 08/11/17 05:50 MCHC 33.1 g/dl (32.0-36.0) 08/11/17 05:50 RDW 17.0 % (11.6-15.6) H 08/11/17 05:50 Plt Count 266 K/MM3 (134-434) 08/11/17 05:50 MPV 8.9 fl (7.5-11.1) 08/11/17 05:50 Sodium 143 mmol/L (136-145) 08/11/17 05:50 Potassium 3.7 mmol/L (3.5-5.1) 08/11/17 05:50 Chloride 107 mmol/L (98-107) 08/11/17 05:50 Carbon Dioxide 30 mmol/L (21-32) 08/11/17 05:50 Anion Gap 6 (8-16) L 08/11/17 05:50 BUN 15 mg/dL (7-18) 08/11/17 05:50 Creatinine 1.2 mg/dL (0.55-1.02) H 08/11/17 05:50 Creat Clearance w eGFR 45.09 (>60) 08/11/17 05:50 Random Glucose 129 mg/dL (74-106) H 08/11/17 05:50 Calcium 9.4 mg/dL (8.5-10.1) 08/11/17 05:50 Total Bilirubin 0.4 mg/dL (0.2-1.0) D 08/11/17 05:50 AST 22 U/L (15-37) 08/11/17 05:50 ALT 28 U/L (12-78) 08/11/17 05:50 Alkaline Phosphatase 171 U/L (45-117) H 08/11/17 05:50 Total Protein 7.6 g/dl (6.4-8.2) 08/11/17 05:50 Albumin 4.0 g/dl (3.4-5.0) 08/11/17 05:50 Urine Color Yellow 08/10/17 22:31 Urine Appearance Slcloudy 08/10/17 22:31 Urine pH 6.0 (5.0-8.0) 08/10/17 22:31 Ur Specific [place] 1.020 (1.001-1.035) 08/10/17 22:31 Urine Protein Negative (NEGATIVE) 08/10/17 22:31 Urine Glucose (UA) Negative (NEGATIVE) 08/10/17 22:31 Urine Ketones Trace (NEGATIVE) H 08/10/17 22:31 Urine Blood Negative (NEGATIVE) 08/10/17 22:31 Urine Nitrite Negative (NEGATIVE) 08/10/17 22:31 Urine Bilirubin Negative (<2.0 mg/dL) 08/10/17 22:31 Urine Urobilinogen 4.0 e.u/dl mg/dL (0.2-1.0) H 08/10/17 22:31 Ur Leukocyte Esterase Negative (NEGATIVE) 08/10/17 22:31 lab noted gfr 45 Assessment: 08/12/17 10:49 withdrawal sx Plan: continue detox renal insufficient
[2017-08-12] MEDS: THIAMINE HCL 100 MG TABLET (FP) PO SCH (22:10)
[2017-08-12] MEDS: chlordiazePOXIDE 5 MG CAPSULE PO SCH (22:10)
[2017-08-12] MEDS: ATORVASTATIN CA 40 MG TABLET (FP) PO SCH (22:10)
[2017-08-12] MEDS: QUEtiapine FUMARATE 50 MG TABLET PO SCH (22:10)
[2017-08-13] MEDS: chlordiazePOXIDE 5 MG CAPSULE PO SCH ×3 (05:22→17:22)
[2017-08-13] MEDS: RANITIDINE HCL 150 MG TABLET (FP) PO SCH ×2 (07:21→17:22)
[2017-08-13] MEDS: PRENATAL VITAMINS W/ FOLIC ACID TABLET (FP) PO SCH (10:14)
[2017-08-13] MEDS: amLODIPine BESYLATE 10 MG TABLET (FP) PO SCH (10:14)
[2017-08-13] MEDS: NICOTINE 14 MG/24 HOURS TOPICAL PATCH TD SCH (10:14)
[2017-08-13] MEDS: ASPIRIN 81 MG CHEWABLE TABLETS PO SCH (10:14)
[2017-08-13] MEDS: CITALOPRAM HYDROBROMIDE 20 MG TABLET (FP) PO SCH (10:14)
--- NOTE | 2017-08-13 13:47 | PN ---
[facility] Progress Note Note: alert,irritable,anxious, back pain Vital Signs Temperature 97.5 F L 08/13/17 10:00 Pulse Rate 95 H 08/13/17 10:00 Respiratory Rate 18 08/13/17 10:00 Blood Pressure 90/67 08/13/17 10:00 O2 Sat by Pulse Oximetry (%) Laboratory Last Values WBC 4.8 K/mm3 (4.0-10.0) 08/11/17 05:50 RBC 4.28 M/mm3 (3.60-5.2) 08/11/17 05:50 Hgb 12.2 GM/dL (10.7-15.3) 08/11/17 05:50 Hct 36.9 % (32.4-45.2) 08/11/17 05:50 MCV 86.2 fl (80-96) 08/11/17 05:50 MCH 28.5 pg (25.7-33.7) 08/11/17 05:50 MCHC 33.1 g/dl (32.0-36.0) 08/11/17 05:50 RDW 17.0 % (11.6-15.6) H 08/11/17 05:50 Plt Count 266 K/MM3 (134-434) 08/11/17 05:50 MPV 8.9 fl (7.5-11.1) 08/11/17 05:50 Sodium 143 mmol/L (136-145) 08/11/17 05:50 Potassium 3.7 mmol/L (3.5-5.1) 08/11/17 05:50 Chloride 107 mmol/L (98-107) 08/11/17 05:50 Carbon Dioxide 30 mmol/L (21-32) 08/11/17 05:50 Anion Gap 6 (8-16) L 08/11/17 05:50 BUN 15 mg/dL (7-18) 08/11/17 05:50 Creatinine 1.2 mg/dL (0.55-1.02) H 08/11/17 05:50 Creat Clearance w eGFR 45.09 (>60) 08/11/17 05:50 Random Glucose 129 mg/dL (74-106) H 08/11/17 05:50 Calcium 9.4 mg/dL (8.5-10.1) 08/11/17 05:50 Total Bilirubin 0.4 mg/dL (0.2-1.0) D 08/11/17 05:50 AST 22 U/L (15-37) 08/11/17 05:50 ALT 28 U/L (12-78) 08/11/17 05:50 Alkaline Phosphatase 171 U/L (45-117) H 08/11/17 05:50 Total Protein 7.6 g/dl (6.4-8.2) 08/11/17 05:50 Albumin 4.0 g/dl (3.4-5.0) 08/11/17 05:50 Urine Color Yellow 08/10/17 22:31 Urine Appearance Slcloudy 08/10/17 22:31 Urine pH 6.0 (5.0-8.0) 08/10/17 22:31 Ur Specific [place] 1.020 (1.001-1.035) 08/10/17 22:31 Urine Protein Negative (NEGATIVE) 08/10/17 22:31 Urine Glucose (UA) Negative (NEGATIVE) 08/10/17 22:31 Urine Ketones Trace (NEGATIVE) H 08/10/17 22:31 Urine Blood Negative (NEGATIVE) 08/10/17 22:31 Urine Nitrite Negative (NEGATIVE) 08/10/17 22:31 Urine Bilirubin Negative (<2.0 mg/dL) 08/10/17 22:31 Urine Urobilinogen 4.0 e.u/dl mg/dL (0.2-1.0) H 08/10/17 22:31 Ur Leukocyte Esterase Negative (NEGATIVE) 08/10/17 22:31 RPR Titer Nonreactive (NONREACTIVE) 08/11/17 05:50 Aox3, no distress no adventitious breath sounds ambulating with cane in the unit - withdrawal sx increase fluids continue detox continue to monitor
[2017-08-13] MEDS: ATORVASTATIN CA 40 MG TABLET (FP) PO SCH (22:20)
[2017-08-13] MEDS: THIAMINE HCL 100 MG TABLET (FP) PO SCH (22:20)
[2017-08-13] MEDS: QUEtiapine FUMARATE 50 MG TABLET PO SCH (22:20)
[2017-08-13] MEDS: chlordiazePOXIDE HCL 10 MG CAPSULE PO SCH (22:20)
[2017-08-13 23:06] VITALS: TEMP 97.7
[2017-08-14] MEDS: chlordiazePOXIDE HCL 10 MG CAPSULE PO SCH (05:19)
[2017-08-14] MEDS: RANITIDINE HCL 150 MG TABLET (FP) PO SCH (07:43)
[2017-08-14] MEDS: ASPIRIN 81 MG CHEWABLE TABLETS PO SCH (09:16)
[2017-08-14] MEDS: NICOTINE 14 MG/24 HOURS TOPICAL PATCH TD SCH (09:17)
[2017-08-14] MEDS: CITALOPRAM HYDROBROMIDE 20 MG TABLET (FP) PO SCH (09:17)
[2017-08-14] MEDS: amLODIPine BESYLATE 10 MG TABLET (FP) PO SCH (09:17)
[2017-08-14] MEDS: PRENATAL VITAMINS W/ FOLIC ACID TABLET (FP) PO SCH (09:17)
--- NOTE | 2017-08-14 09:19 | DS ---
[facility] Detox Discharge Summary Admission Date: 08/10/17 Discharge Date: 08/14/17 - History Present History: Alcohol Dependence Additional Comments: 67 years old female admitted 08/10/17 for alcohol withdrawal sx completed alcohol detox regimen tolerated well denies alcohol withdrawal sx alert oriented x 3 no acute distress social with peers in day room after[facility] brief motivational intervention to promote sobriety - Physical Exam Results Vital Signs: Vital Signs Temperature 97.7 F 08/14/17 06:00 Pulse Rate 78 08/14/17 06:00 Respiratory Rate 18 08/14/17 06:00 Blood Pressure 119/72 08/14/17 06:00 O2 Sat by Pulse Oximetry (%) Pertinent Admission Physical Exam Findings: alcohol withdrawal sx Vital Signs Temperature 97.7 F 08/14/17 09:20 Pulse Rate 79 08/14/17 09:20 Respiratory Rate 18 08/14/17 09:20 Blood Pressure 126/77 08/14/17 09:20 O2 Sat by Pulse Oximetry (%) Laboratory Last Values WBC 4.8 K/mm3 (4.0-10.0) 08/11/17 05:50 RBC 4.28 M/mm3 (3.60-5.2) 08/11/17 05:50 Hgb 12.2 GM/dL (10.7-15.3) 08/11/17 05:50 Hct 36.9 % (32.4-45.2) 08/11/17 05:50 MCV 86.2 fl (80-96) 08/11/17 05:50 MCH 28.5 pg (25.7-33.7) 08/11/17 05:50 MCHC 33.1 g/dl (32.0-36.0) 08/11/17 05:50 RDW 17.0 % (11.6-15.6) H 08/11/17 05:50 Plt Count 266 K/MM3 (134-434) 08/11/17 05:50 MPV 8.9 fl (7.5-11.1) 08/11/17 05:50 Sodium 143 mmol/L (136-145) 08/11/17 05:50 Potassium 3.7 mmol/L (3.5-5.1) 08/11/17 05:50 Chloride 107 mmol/L (98-107) 08/11/17 05:50 Carbon Dioxide 30 mmol/L (21-32) 08/11/17 05:50 Anion Gap 6 (8-16) L 08/11/17 05:50 BUN 15 mg/dL (7-18) 08/11/17 05:50 Creatinine 1.2 mg/dL (0.55-1.02) H 08/11/17 05:50 Creat Clearance w eGFR 45.09 (>60) 08/11/17 05:50 Random Glucose 129 mg/dL (74-106) H 08/11/17 05:50 Calcium 9.4 mg/dL (8.5-10.1) 08/11/17 05:50 Total Bilirubin 0.4 mg/dL (0.2-1.0) D 08/11/17 05:50 AST 22 U/L (15-37) 08/11/17 05:50 ALT 28 U/L (12-78) 08/11/17 05:50 Alkaline Phosphatase 171 U/L (45-117) H 08/11/17 05:50 Total Protein 7.6 g/dl (6.4-8.2) 08/11/17 05:50 Albumin 4.0 g/dl (3.4-5.0) 08/11/17 05:50 Urine Color Yellow 08/10/17 22:31 Urine Appearance Slcloudy 08/10/17 22:31 Urine pH 6.0 (5.0-8.0) 08/10/17 22:31 Ur Specific [place] 1.020 (1.001-1.035) 08/10/17 22:31 Urine Protein Negative (NEGATIVE) 08/10/17 22:31 Urine Glucose (UA) Negative (NEGATIVE) 08/10/17 22:31 Urine Ketones Trace (NEGATIVE) H 08/10/17 22:31 Urine Blood Negative (NEGATIVE) 08/10/17 22:31 Urine Nitrite Negative (NEGATIVE) 08/10/17 22:31 Urine Bilirubin Negative (<2.0 mg/dL) 08/10/17 22:31 Urine Urobilinogen 4.0 e.u/dl mg/dL (0.2-1.0) H 08/10/17 22:31 Ur Leukocyte Esterase Negative (NEGATIVE) 08/10/17 22:31 RPR Titer Nonreactive (NONREACTIVE) 08/11/17 05:50 lab noted health teaching on substance related health issue such as renal functioning - Treatment Hospital Course: Detox Protocol Followed, Detoxed Safely, Responded well, Discharged Condition Good, Rehab Referral Accepted Patient has Accepted a Rehab Referral to: [facility] - Medication Discharge Medications: Ambulatory Orders Albuterol Sulfate Inhaler - [Ventolin HFA Inhaler -] 2 inh PO Q4H PRN 11/07/14 Omeprazole [Prilosec] 20 mg PO DAILY 11/07/14 Amlodipine Besylate [Norvasc -] 10 mg PO DAILY #30 tablet 11/11/14 Aspirin [ASA -] 81 mg PO DAILY #30 tab.chew 11/11/14 Acetaminophen [Tylenol .Extra-Strength -] 500 mg PO Q6H PRN 12/17/15 Atorvastatin Ca [Lipitor] 40 mg PO HS 12/17/15 Multivitamins [Multivit ([facility] Formulary)] 1 tab PO DAILY 12/17/15 Citalopram Hydrobromide [Celexa -] 20 mg PO DAILY #30 tablet 08/11/17 Quetiapine Fumarate [Seroquel -] 50 mg PO HS #30 tablet 08/11/17 - Diagnosis (1) Asthma Current Visit: Yes Status: Chronic Qualifiers: Asthma severity: mild Asthma persistence: intermittent Asthma complication type: with status asthmaticus Qualified Code(s): J45.22 - Mild intermittent asthma with status asthmaticus (2) GERD (gastroesophageal reflux disease) Current Visit: Yes Status: Chronic Qualifiers: Esophagitis presence: without esophagitis Qualified Code(s): K21.9 - Gastro -esophageal reflux disease without esophagitis (3) Hypercholesteremia Current Visit: Yes Status: Chronic (4) Hypertension Current Visit: Yes Status: Chronic Qualifiers: Hypertension type: essential hypertension Qualified Code(s): I10 - Essential (primary) hypertension (5) Nicotine dependence Current Visit: Yes Status: Acute Qualifiers: Nicotine product type: cigarettes Substance use status: in withdrawal Qualified Code(s): F17.213 - Nicotine dependence, cigarettes, with withdrawal (6) Sleep apnea Current Visit: No Status: Chronic Qualifiers: Sleep apnea type: unspecified type Qualified Code(s): G47.30 - Sleep apnea , unspecified (7) Renal insufficiency Current Visit: Yes Status: Chronic - AMA Did Patient Leave Against Medical Advice: No
[2017-08-14 09:20] VITALS: BP 126/77; PULSE 79
== END 2017-08-14 09:45 | disposition other institution (70) | DRG 897 ==
LOC: YASAS 12:36 → Y6N 16:11
PROVIDERS: ADMIT Surgery; ATTEND Surgery
PROC: HZ2ZZZZ Detoxification Services for Substance Abuse Treatment (ICD-10-PCS; principal; 2017-08-10)
DX: F10.230 Alcohol dependence with withdrawal, uncomplicated (principal); F14.20 Cocaine dependence, uncomplicated; J45.22 Mild intermittent asthma with status asthmaticus; F10.24 Alcohol dependence with alcohol-induced mood disorder; F17.213 Nicotine dependence, cigarettes, with withdrawal; F19.24 Other psychoactive substance dependence with psychoactive substance-induced mood disorder; I10 Essential (primary) hypertension; K21.9 Gastro-esophageal reflux disease without esophagitis; G47.30 Sleep apnea, unspecified; E78.00 Pure hypercholesterolemia, unspecified; N28.9 Disorder of kidney and ureter, unspecified; Z85.828 Personal history of other malignant neoplasm of skin; Z86.73 Personal history of transient ischemic attack (TIA), and cerebral infarction without residual deficits; Z91.011 Allergy to milk products
CPT/HCPCS: 36415; 80053; 81003; 85027; 86593; 93005; 93010; J0735

== ENCOUNTER 2017-08-14 11:10 | Inpatient (IN) | payer OTHER ==
[2017-08-14 12:24] VITALS: BMI 38.1
--- NOTE | 2017-08-14 12:42 | HP ---
IVELISSE ASENCIO Rehab Assess/Revision - Admission History Admitted to Rehab from: [facility] [place] Date of Admission to Rehab: 08/14/17 - Vital signs Vital Signs: Vital Signs Period Temp Pulse Resp BP Sys/Vásquez Pulse Ox Last 24 Hr 98.0 F-98.0 F 84-84 16-16 103-103/71-71 - Findings Detox History & Physical reviewed: Yes Concur with findings: Yes Comments/Additional Findings: transferred from detox to rehab admission as per protocol Inpatient Rehab Admission - Rehab Admission Criteria Previous failed treatment: Yes Poor recovery environment: Yes Comorbidities: Yes Lacks judgement: No Patient is meeting Inpatient Rehab admission criteria:: Yes
[2017-08-14] MEDS ORDERED: IBUPROFEN 400 MG TABLET (FP) PO PRN (12:43)
[2017-08-14] MEDS ORDERED: MAGNESIUM HYDROX 2400MG/30ML ORAL SUSPENSION 30 ML CUP PO PRN (12:43)
[2017-08-14] MEDS ORDERED: MAG HYDROX/AL HYDROX/SIMETH 30 ML UNIT-DOSE CUP PO PRN (12:43)
[2017-08-14] MEDS ORDERED: MENTHOL/PHENOL 1 EACH UD MM PRN (12:43)
[2017-08-14] MEDS ORDERED: MAGNESIUM CITRATE 300 ML BOTTLE PO PRN (12:43)
[2017-08-14] MEDS ORDERED: NICOTINE POLACRILEX 2 MG GUM BUC PRN (12:43)
[2017-08-14] MEDS ORDERED: LOPERAMIDE HCL 2 MG CAPSULE PO PRN (12:43)
[2017-08-14] MEDS ORDERED: P-EPHED 60MG/TRIPROLIDI 2.5MG TABLET PO PRN (12:43)
[2017-08-14] MEDS: CITALOPRAM HYDROBROMIDE 20 MG TABLET (FP) PO SCH (14:18)
[2017-08-14] MEDS: NICOTINE 14 MG/24 HOURS TOPICAL PATCH TD SCH (15:07)
[2017-08-14] MEDS ORDERED: ATORVASTATIN CA 20 MG TABLET (FP) ONE (20:43)
[2017-08-14] MEDS: RANITIDINE HCL 150 MG TABLET (FP) PO SCH (21:23)
[2017-08-14] MEDS: THIAMINE HCL 100 MG TABLET (FP) PO SCH (21:23)
[2017-08-14] MEDS: MELATONIN 5 MG TABLETS PO PRN (21:24)
[2017-08-14] MEDS: QUEtiapine FUMARATE 50 MG TABLET PO SCH (21:24)
[2017-08-14] MEDS: ATORVASTATIN CA 40 MG TABLET (FP) PO SCH (22:00)
--- NOTE | 2017-08-15 08:33 | PN ---
S Progress Note Note: Called from [facility] on 08/14/17 regarding medication order.Pt is on Seroquel 50 mg po hs,Celexa 20 mg po daily,order was placed on 08/14/17.
--- NOTE | 2017-08-15 09:54 | HP ---
Psychiatrist Admission - Data Date of interview: 08/15/17 Admission source: [address] [place] [address] Identifying data: This is the first admission to [facility] for this single mother of 4 resides with boyfriend,supported by [facility]. Medical History: Significant for Cancer,HTN,BA,GERD,Hypelipidemia. Psychiatric History: Patient reports depressed mood,anxiety on and off since 5 years ago.She was evaluated while in one of the drug treatment programs and placed on Seroquel 50 mg po hs, Celexa 10 mg po daily with no response yet.Patient is willing to start higher dosage of Celexa.Denies suicidality,no psychiatric hospitalizations. Physical/Sexual Abuse/Trauma History: denies Vital Signs: Vital Signs - 24 hr 08/14/17 08/14/17 08/15/17 12:01 12:22 00:30 Temperature 98.0 F 98.0 F Pulse Rate 84 84 Respiratory 16 16 18 Rate Blood Pressure 103/71 103/71 08/15/17 08/15/17 08/15/17 03:30 07:15 09:32 Temperature 97.2 F L Pulse Rate 75 90 Respiratory 18 18 Rate Blood Pressure 113/79 125/78 Allergies/Adverse Reactions: Allergies Allergy/AdvReac Type Severity Reaction Status Date / Time tomato Allergy Severe Rash Verified 08/10/17 14:25 No Known Drug Allergies Allergy Verified 08/10/17 14:25 lactose AdvReac DIARRHEA Verified 08/10/17 14:25 Date of last physical exam: 08/10/17 - Substance Abuse/Tx History Hx Alcohol Use: Yes (drinking since 19 yo,vodka 1 pint daily) Hx Substance Use: Yes (cocaine/crack since 25 yo) Substance Use Type: Alcohol, Cocaine Hx Substance Use Treatment: Yes (completed [facility] inpatient rehab,5 years abstinence) Mental Status Exam - Mental Status Exam Alert and Oriented to: Time, Place, Person Cognitive Function: Grossly Intact Patient Appearance: Well Groomed Mood: Sad Affect: Mood Congruent, Labile Patient Behavior: Cooperative Speech Pattern: Clear Voice Loudness: Normal Thought Process: Goal Oriented Thought Disorder: Not Present Hallucinations: Denies Suicidal Ideation: Denies Homicidal Ideation: Denies Insight/Judgement: Fair Sleep: Fair Appetite: Good Muscle strength/Tone: Normal Gait/Station: Normal Psychiatric Findings - Problem List ([place] 1, 2,3) (1) Renal insufficiency Current Visit: Yes Status: Chronic (2) Hypertension Current Visit: Yes Status: Chronic Qualifiers: Hypertension type: essential hypertension Qualified Code(s): I10 - Essential (primary) hypertension (3) TIA (transient ischemic attack) Current Visit: Yes Status: Resolved (4) Alcohol-induced mood disorder Current Visit: Yes Status: Chronic (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 (6) Hypercholesteremia Current Visit: Yes Status: Chronic (7) Asthma Current Visit: No Status: Chronic Qualifiers: Asthma severity: mild Asthma persistence: intermittent Asthma complication type: with status asthmaticus Qualified Code(s): J45.22 - Mild intermittent asthma with status asthmaticus (8) Nicotine dependence Current Visit: Yes Status: Chronic Qualifiers: Nicotine product type: cigarettes Substance use status: in withdrawal Qualified Code(s): F17.213 - Nicotine dependence, cigarettes, with withdrawal (9) Sleep apnea Current Visit: Yes Status: Chronic Qualifiers: Sleep apnea type: unspecified type Qualified Code(s): G47.30 - Sleep apnea , unspecified Comment: USING MACHINE AT HOME PERIODICALLY "NOT EVERYDAY" - Initial Treatment Plan Initial Treatment Plan: Continue Seroquel 50 mg po hs,Celexa 20 mg po daily.Will monitor progress.
[2017-08-15] MEDS: ASPIRIN 81 MG CHEWABLE TABLETS PO SCH (10:25)
[2017-08-15] MEDS: RANITIDINE HCL 150 MG TABLET (FP) PO SCH ×2 (10:25→21:34)
[2017-08-15] MEDS: NICOTINE 14 MG/24 HOURS TOPICAL PATCH TD SCH (10:25)
[2017-08-15] MEDS: amLODIPine BESYLATE 10 MG TABLET (FP) PO SCH (10:25)
[2017-08-15] MEDS: PRENATAL VITAMINS W/ FOLIC ACID TABLET (FP) PO SCH (10:25)
[2017-08-15] MEDS: CITALOPRAM HYDROBROMIDE 20 MG TABLET (FP) PO SCH (10:25)
[2017-08-15] MEDS ORDERED: ATORVASTATIN CA 20 MG TABLET (FP) ONE (19:24)
[2017-08-15] MEDS: THIAMINE HCL 100 MG TABLET (FP) PO SCH (21:34)
[2017-08-15] MEDS: ATORVASTATIN CA 40 MG TABLET (FP) PO SCH (21:34)
[2017-08-15] MEDS: QUEtiapine FUMARATE 50 MG TABLET PO SCH (21:34)
[2017-08-16] MEDS: ACETAMINOPHEN 325 MG TABLET (FP) PO PRN (07:03)
[2017-08-16] MEDS: ASPIRIN 81 MG CHEWABLE TABLETS PO SCH (10:05)
[2017-08-16] MEDS: amLODIPine BESYLATE 10 MG TABLET (FP) PO SCH (10:05)
[2017-08-16] MEDS: PRENATAL VITAMINS W/ FOLIC ACID TABLET (FP) PO SCH (10:05)
[2017-08-16] MEDS: RANITIDINE HCL 150 MG TABLET (FP) PO SCH ×2 (10:05→21:26)
[2017-08-16] MEDS: CITALOPRAM HYDROBROMIDE 20 MG TABLET (FP) PO SCH (10:05)
[2017-08-16] MEDS: NICOTINE 14 MG/24 HOURS TOPICAL PATCH TD SCH (10:06)
--- NOTE | 2017-08-16 15:08 | PN ---
S Progress Note Note: c/o of non - radiating low back pain with started this past Tuesday. No new onset of incontinence, paralysis or paresthesia reported. Vital Signs Temperature 98.2 F 08/16/17 07:11 Pulse Rate 91 H 08/16/17 10:00 Respiratory Rate 18 08/16/17 07:11 Blood Pressure 118/80 08/16/17 10:00 O2 Sat by Pulse Oximetry (%) A/P Patient AOx3, no distress no adventitious breath sounds ambulating in the unit with came with out limitation + back pain FULL ROM, no joint swelling or erythema - acute low back pain Plan: lidocaine patch top ibuprofen 400mg PRN ambulate continue to monitor
[2017-08-16] MEDS: LIDOCAINE 5% TOPICAL PATCH TP SCH (15:37)
[2017-08-16] MEDS: QUEtiapine FUMARATE 50 MG TABLET PO SCH (21:26)
[2017-08-16] MEDS: THIAMINE HCL 100 MG TABLET (FP) PO SCH (21:26)
[2017-08-16] MEDS: ATORVASTATIN CA 40 MG TABLET (FP) PO SCH (21:26)
[2017-08-16] MEDS: LIDOCAINE PATCH REMOVAL MC SCH (21:26)
[2017-08-17] MEDS: LIDOCAINE 5% TOPICAL PATCH TP SCH (10:27)
[2017-08-17] MEDS: CITALOPRAM HYDROBROMIDE 20 MG TABLET (FP) PO SCH (10:28)
[2017-08-17] MEDS: RANITIDINE HCL 150 MG TABLET (FP) PO SCH ×2 (10:28→21:26)
[2017-08-17] MEDS: NICOTINE 14 MG/24 HOURS TOPICAL PATCH TD SCH (10:28)
[2017-08-17] MEDS: PRENATAL VITAMINS W/ FOLIC ACID TABLET (FP) PO SCH (10:28)
[2017-08-17] MEDS: amLODIPine BESYLATE 10 MG TABLET (FP) PO SCH (10:28)
[2017-08-17] MEDS: ASPIRIN 81 MG CHEWABLE TABLETS PO SCH (10:28)
[2017-08-17] MEDS: ATORVASTATIN CA 40 MG TABLET (FP) PO SCH (21:26)
[2017-08-17] MEDS: THIAMINE HCL 100 MG TABLET (FP) PO SCH (21:26)
[2017-08-17] MEDS: QUEtiapine FUMARATE 50 MG TABLET PO SCH (21:26)
[2017-08-17] MEDS: LIDOCAINE PATCH REMOVAL MC SCH (21:27)
[2017-08-18] MEDS: NICOTINE 14 MG/24 HOURS TOPICAL PATCH TD SCH (10:02)
[2017-08-18] MEDS: LIDOCAINE 5% TOPICAL PATCH TP SCH (10:03)
[2017-08-18] MEDS: RANITIDINE HCL 150 MG TABLET (FP) PO SCH ×2 (10:03→21:28)
[2017-08-18] MEDS: PRENATAL VITAMINS W/ FOLIC ACID TABLET (FP) PO SCH (10:03)
[2017-08-18] MEDS: CITALOPRAM HYDROBROMIDE 20 MG TABLET (FP) PO SCH (10:03)
[2017-08-18] MEDS: ASPIRIN 81 MG CHEWABLE TABLETS PO SCH (10:03)
[2017-08-18] MEDS: amLODIPine BESYLATE 10 MG TABLET (FP) PO SCH (10:03)
[2017-08-18] MEDS: ACETAMINOPHEN 325 MG TABLET (FP) PO PRN (10:06)
--- NOTE | 2017-08-18 13:35 | PN ---
S Progress Note Note: Vital Signs Temperature 97.9 F 08/18/17 06:51 Pulse Rate 92 H 08/18/17 09:15 Respiratory Rate 18 08/18/17 06:51 Blood Pressure 133/84 08/18/17 09:15 O2 Sat by Pulse Oximetry (%) Laboratory Tests 08/17/17 08/18/17 06:39 06:45 POC Glucometer 99 94 Patient requested to discontinue to BGM. BGM stable and patient stable. BGM d/c as per patient's request continue to monitor
[2017-08-18] MEDS: ATORVASTATIN CA 40 MG TABLET (FP) PO SCH (21:28)
[2017-08-18] MEDS: QUEtiapine FUMARATE 50 MG TABLET PO SCH (21:28)
[2017-08-18] MEDS: THIAMINE HCL 100 MG TABLET (FP) PO SCH (21:28)
[2017-08-18] MEDS: LIDOCAINE PATCH REMOVAL MC SCH (21:29)
[2017-08-19] MEDS: ASPIRIN 81 MG CHEWABLE TABLETS PO SCH (09:56)
[2017-08-19] MEDS: CITALOPRAM HYDROBROMIDE 20 MG TABLET (FP) PO SCH (09:56)
[2017-08-19] MEDS: PRENATAL VITAMINS W/ FOLIC ACID TABLET (FP) PO SCH (09:57)
[2017-08-19] MEDS: RANITIDINE HCL 150 MG TABLET (FP) PO SCH ×2 (09:57→21:29)
[2017-08-19] MEDS: LIDOCAINE 5% TOPICAL PATCH TP SCH (09:57)
[2017-08-19] MEDS: amLODIPine BESYLATE 10 MG TABLET (FP) PO SCH (09:57)
[2017-08-19] MEDS: NICOTINE 14 MG/24 HOURS TOPICAL PATCH TD SCH (09:58)
[2017-08-19] MEDS: ATORVASTATIN CA 40 MG TABLET (FP) PO SCH (21:29)
[2017-08-19] MEDS: QUEtiapine FUMARATE 50 MG TABLET PO SCH (21:30)
[2017-08-19] MEDS: THIAMINE HCL 100 MG TABLET (FP) PO SCH (21:30)
[2017-08-19] MEDS: LIDOCAINE PATCH REMOVAL MC SCH (21:30)
[2017-08-19] MEDS: MELATONIN 5 MG TABLETS PO PRN (21:30)
[2017-08-19] MEDS: ACETAMINOPHEN 325 MG TABLET (FP) PO PRN (21:31)
[2017-08-20] MEDS: NICOTINE 14 MG/24 HOURS TOPICAL PATCH TD SCH (09:51)
[2017-08-20] MEDS: CITALOPRAM HYDROBROMIDE 20 MG TABLET (FP) PO SCH (09:52)
[2017-08-20] MEDS: PRENATAL VITAMINS W/ FOLIC ACID TABLET (FP) PO SCH (09:52)
[2017-08-20] MEDS: amLODIPine BESYLATE 10 MG TABLET (FP) PO SCH (09:52)
[2017-08-20] MEDS: LIDOCAINE 5% TOPICAL PATCH TP SCH (09:52)
[2017-08-20] MEDS: ASPIRIN 81 MG CHEWABLE TABLETS PO SCH (09:52)
[2017-08-20] MEDS: RANITIDINE HCL 150 MG TABLET (FP) PO SCH ×2 (09:52→21:20)
[2017-08-20] MEDS: LIDOCAINE PATCH REMOVAL MC SCH (21:20)
[2017-08-20] MEDS: THIAMINE HCL 100 MG TABLET (FP) PO SCH (21:20)
[2017-08-20] MEDS: ATORVASTATIN CA 40 MG TABLET (FP) PO SCH (21:20)
[2017-08-20] MEDS: QUEtiapine FUMARATE 50 MG TABLET PO SCH (21:20)
[2017-08-21] MEDS: CITALOPRAM HYDROBROMIDE 20 MG TABLET (FP) PO SCH (09:38)
[2017-08-21] MEDS: ASPIRIN 81 MG CHEWABLE TABLETS PO SCH (09:38)
[2017-08-21] MEDS: PRENATAL VITAMINS W/ FOLIC ACID TABLET (FP) PO SCH (09:38)
[2017-08-21] MEDS: LIDOCAINE 5% TOPICAL PATCH TP SCH (09:39)
[2017-08-21] MEDS: NICOTINE 14 MG/24 HOURS TOPICAL PATCH TD SCH (09:39)
[2017-08-21] MEDS: RANITIDINE HCL 150 MG TABLET (FP) PO SCH ×2 (09:39→21:25)
[2017-08-21] MEDS: amLODIPine BESYLATE 10 MG TABLET (FP) PO SCH (09:39)
[2017-08-21] MEDS: ATORVASTATIN CA 40 MG TABLET (FP) PO SCH (21:25)
[2017-08-21] MEDS: THIAMINE HCL 100 MG TABLET (FP) PO SCH (21:25)
[2017-08-21] MEDS: QUEtiapine FUMARATE 50 MG TABLET PO SCH (21:25)
[2017-08-21] MEDS: LIDOCAINE PATCH REMOVAL MC SCH (21:26)
[2017-08-22] MEDS: guaiFENesin/D-METHORPHAN HB 10 ML UNIT-DOSE CUPS PO PRN ×3 (06:24→21:31)
[2017-08-22] MEDS: CITALOPRAM HYDROBROMIDE 20 MG TABLET (FP) PO SCH (10:08)
[2017-08-22] MEDS: ASPIRIN 81 MG CHEWABLE TABLETS PO SCH (10:08)
[2017-08-22] MEDS: LIDOCAINE 5% TOPICAL PATCH TP SCH (10:08)
[2017-08-22] MEDS: NICOTINE 14 MG/24 HOURS TOPICAL PATCH TD SCH (10:08)
[2017-08-22] MEDS: RANITIDINE HCL 150 MG TABLET (FP) PO SCH ×2 (10:09→21:28)
[2017-08-22] MEDS: amLODIPine BESYLATE 10 MG TABLET (FP) PO SCH (10:09)
[2017-08-22] MEDS: PRENATAL VITAMINS W/ FOLIC ACID TABLET (FP) PO SCH (10:09)
--- NOTE | 2017-08-22 14:06 | PN ---
[facility] Progress Note Note: PATIENT C/O NON-PRODUCTIVE COUGH X 2 DAYS. DENIES FEVER, SOB AND CHEST PAIN. ROBITUSSIN GIVEN WITH NO EFFECT. Vital Signs Temperature 98.2 F 08/22/17 06:40 Pulse Rate 97 H 08/22/17 09:29 Respiratory Rate 18 08/22/17 06:40 Blood Pressure 130/82 08/22/17 09:29 O2 Sat by Pulse Oximetry (%) Laboratory Tests 08/17/17 08/18/17 06:39 06:45 POC Glucometer 99 94 OBJ: SKIN: WARM AND DRY CAR: S1S2 RESP: CTA BL EXT: NO EDEMA A/P: COUGH WILL CHECK CXR CONTINUE TO MONITOR V/S AND CLINICALLY
[2017-08-22] MEDS: THIAMINE HCL 100 MG TABLET (FP) PO SCH (21:27)
[2017-08-22] MEDS: QUEtiapine FUMARATE 50 MG TABLET PO SCH (21:28)
[2017-08-22] MEDS: ATORVASTATIN CA 40 MG TABLET (FP) PO SCH (21:28)
[2017-08-22] MEDS: MELATONIN 5 MG TABLETS PO PRN (21:29)
[2017-08-22] MEDS: diphenhydrAMINE HCL 50 MG CAPSULE PO PRN (21:30)
[2017-08-22] MEDS: LIDOCAINE PATCH REMOVAL MC SCH (21:32)
[2017-08-23] MEDS: RANITIDINE HCL 150 MG TABLET (FP) PO SCH ×2 (09:56→21:33)
[2017-08-23] MEDS: PRENATAL VITAMINS W/ FOLIC ACID TABLET (FP) PO SCH (09:56)
[2017-08-23] MEDS: amLODIPine BESYLATE 10 MG TABLET (FP) PO SCH (09:56)
[2017-08-23] MEDS: ASPIRIN 81 MG CHEWABLE TABLETS PO SCH (09:56)
[2017-08-23] MEDS: CITALOPRAM HYDROBROMIDE 20 MG TABLET (FP) PO SCH (09:56)
[2017-08-23] MEDS: NICOTINE 14 MG/24 HOURS TOPICAL PATCH TD SCH (09:56)
[2017-08-23] MEDS: LIDOCAINE 5% TOPICAL PATCH TP SCH (09:57)
[2017-08-23] MEDS: guaiFENesin/D-METHORPHAN HB 10 ML UNIT-DOSE CUPS PO PRN ×2 (09:59→16:41)
--- NOTE | 2017-08-23 13:59 | PN ---
[facility] Progress [facility] Note: Patient reports nasal congestion and cough. Attributes current symptoms to air conditioner use on in her room. Patient denies SOB, CP, vertigo or paresthesia. Vital Signs Temperature 98.2 F 08/23/17 09:00 Pulse Rate 89 08/23/17 09:00 Respiratory Rate 18 08/23/17 09:00 Blood Pressure 132/80 08/23/17 09:00 O2 Sat by Pulse Oximetry (%) Laboratory Last Values POC Glucometer 94 UNITS (80-120) 08/18/17 06:45 A/P Patient AOx3 in no apparent distress s1, s2, no JVD + rhinorrhea and nasal congestion Lunges clear through out, no adventitious breath sounds Skin intact, no edema or erythema - Upper Respiratory Infection Plan: Continue guafenesin q6h PRN flonase NS QD increase fluids continue to monitor
[2017-08-23] MEDS: FLUTICASONE PROP 0.05% 16 GM NASAL SPRAY NS SCH (15:00)
[2017-08-23] MEDS: ALBUTEROL SO4 18 GM HFA INHALER IH PRN (17:58)
[2017-08-23] MEDS: ATORVASTATIN CA 40 MG TABLET (FP) PO SCH (21:33)
[2017-08-23] MEDS: QUEtiapine FUMARATE 50 MG TABLET PO SCH (21:33)
[2017-08-23] MEDS: diphenhydrAMINE HCL 50 MG CAPSULE PO PRN (21:33)
[2017-08-23] MEDS: THIAMINE HCL 100 MG TABLET (FP) PO SCH (21:33)
[2017-08-23] MEDS: MELATONIN 5 MG TABLETS PO PRN (21:34)
[2017-08-23] MEDS: LIDOCAINE PATCH REMOVAL MC SCH (21:35)
[2017-08-24] MEDS: ACETAMINOPHEN 325 MG TABLET (FP) PO PRN ×2 (06:35→13:25)
[2017-08-24] MEDS: RANITIDINE HCL 150 MG TABLET (FP) PO SCH ×2 (09:57→21:22)
[2017-08-24] MEDS: FLUTICASONE PROP 0.05% 16 GM NASAL SPRAY NS SCH (09:57)
[2017-08-24] MEDS: amLODIPine BESYLATE 10 MG TABLET (FP) PO SCH (09:57)
[2017-08-24] MEDS: NICOTINE 14 MG/24 HOURS TOPICAL PATCH TD SCH (09:57)
[2017-08-24] MEDS: CITALOPRAM HYDROBROMIDE 20 MG TABLET (FP) PO SCH (09:57)
[2017-08-24] MEDS: PRENATAL VITAMINS W/ FOLIC ACID TABLET (FP) PO SCH (09:57)
[2017-08-24] MEDS: ASPIRIN 81 MG CHEWABLE TABLETS PO SCH (09:57)
[2017-08-24] MEDS: LIDOCAINE 5% TOPICAL PATCH TP SCH (09:58)
[2017-08-24] MEDS: guaiFENesin/D-METHORPHAN HB 10 ML UNIT-DOSE CUPS PO PRN ×2 (09:59→21:24)
--- NOTE | 2017-08-24 16:52 | PN ---
S Progress Note Note: Vital Signs - 24 hr 08/24/17 08/24/17 08/24/17 00:30 06:30 09:38 Temperature 102.1 F H 100.6 F H Pulse Rate 123 H 106 H Respiratory 18 18 18 Rate Blood Pressure 86/56 110/71 08/24/17 08/24/17 13:23 15:10 Temperature 99.6 F 98.4 F Pulse Rate Respiratory Rate Blood Pressure Patient febrile possible URI. Patient started on Azithromycin x 1 day x 500 + 4day x 250 mg increase fluids continue to monitor
[2017-08-24] MEDS ORDERED: AZITHROMYCIN 250 MG TABLET PO ONE (17:15)
[2017-08-24] MEDS: THIAMINE HCL 100 MG TABLET (FP) PO SCH (21:22)
[2017-08-24] MEDS: ATORVASTATIN CA 40 MG TABLET (FP) PO SCH (21:22)
[2017-08-24] MEDS: QUEtiapine FUMARATE 50 MG TABLET PO SCH (21:22)
[2017-08-24] MEDS: LIDOCAINE PATCH REMOVAL MC SCH (21:23)
[2017-08-25] MEDS ORDERED: PT OWN MED DRAWER 7, Y5N ONE (08:34)
[2017-08-25] MEDS: CITALOPRAM HYDROBROMIDE 20 MG TABLET (FP) PO SCH (10:04)
[2017-08-25] MEDS: ASPIRIN 81 MG CHEWABLE TABLETS PO SCH (10:04)
[2017-08-25] MEDS: FLUTICASONE PROP 0.05% 16 GM NASAL SPRAY NS SCH (10:08)
[2017-08-25] MEDS: PRENATAL VITAMINS W/ FOLIC ACID TABLET (FP) PO SCH (10:09)
[2017-08-25] MEDS: amLODIPine BESYLATE 10 MG TABLET (FP) PO SCH (10:09)
[2017-08-25] MEDS: NICOTINE 14 MG/24 HOURS TOPICAL PATCH TD SCH (10:09)
[2017-08-25] MEDS: LIDOCAINE 5% TOPICAL PATCH TP SCH (10:09)
[2017-08-25] MEDS: RANITIDINE HCL 150 MG TABLET (FP) PO SCH ×2 (10:09→21:20)
[2017-08-25] MEDS: AZITHROMYCIN 250 MG TABLET PO SCH (10:10)
[2017-08-25] MEDS: guaiFENesin/D-METHORPHAN HB 10 ML UNIT-DOSE CUPS PO PRN ×2 (10:10→16:34)
[2017-08-25] MEDS: ALBUTEROL SO4 18 GM HFA INHALER IH PRN (13:29)
[2017-08-25] MEDS: ATORVASTATIN CA 40 MG TABLET (FP) PO SCH (21:20)
[2017-08-25] MEDS: THIAMINE HCL 100 MG TABLET (FP) PO SCH (21:20)
[2017-08-25] MEDS: QUEtiapine FUMARATE 50 MG TABLET PO SCH (21:20)
[2017-08-25] MEDS: LIDOCAINE PATCH REMOVAL MC SCH (21:21)
[2017-08-26] MEDS: guaiFENesin/D-METHORPHAN HB 10 ML UNIT-DOSE CUPS PO PRN (06:34)
[2017-08-26] MEDS: ASPIRIN 81 MG CHEWABLE TABLETS PO SCH (10:25)
[2017-08-26] MEDS: CITALOPRAM HYDROBROMIDE 20 MG TABLET (FP) PO SCH (10:26)
[2017-08-26] MEDS: LIDOCAINE 5% TOPICAL PATCH TP SCH (10:26)
[2017-08-26] MEDS: FLUTICASONE PROP 0.05% 16 GM NASAL SPRAY NS SCH (10:26)
[2017-08-26] MEDS: PRENATAL VITAMINS W/ FOLIC ACID TABLET (FP) PO SCH (10:27)
[2017-08-26] MEDS: NICOTINE 14 MG/24 HOURS TOPICAL PATCH TD SCH (10:27)
[2017-08-26] MEDS: amLODIPine BESYLATE 10 MG TABLET (FP) PO SCH (10:27)
[2017-08-26] MEDS: RANITIDINE HCL 150 MG TABLET (FP) PO SCH ×2 (10:28→21:33)
[2017-08-26] MEDS ORDERED: PT OWN MED DRAWER 7, Y5N ONE ×2 (10:29→11:09)
[2017-08-26] MEDS: AZITHROMYCIN 250 MG TABLET PO SCH (10:29)
[2017-08-26] MEDS: ATORVASTATIN CA 40 MG TABLET (FP) PO SCH (21:33)
[2017-08-26] MEDS: THIAMINE HCL 100 MG TABLET (FP) PO SCH (21:33)
[2017-08-26] MEDS: QUEtiapine FUMARATE 50 MG TABLET PO SCH (21:33)
[2017-08-26] MEDS: MELATONIN 5 MG TABLETS PO PRN (21:34)
[2017-08-26] MEDS: LIDOCAINE PATCH REMOVAL MC SCH (21:34)
[2017-08-27] MEDS ORDERED: PT OWN MED DRAWER 7, Y5N ONE (08:13)
[2017-08-27] MEDS: LIDOCAINE 5% TOPICAL PATCH TP SCH (09:45)
[2017-08-27] MEDS: PRENATAL VITAMINS W/ FOLIC ACID TABLET (FP) PO SCH (09:46)
[2017-08-27] MEDS: amLODIPine BESYLATE 10 MG TABLET (FP) PO SCH (09:46)
[2017-08-27] MEDS: CITALOPRAM HYDROBROMIDE 20 MG TABLET (FP) PO SCH (09:46)
[2017-08-27] MEDS: FLUTICASONE PROP 0.05% 16 GM NASAL SPRAY NS SCH (09:46)
[2017-08-27] MEDS: AZITHROMYCIN 250 MG TABLET PO SCH (09:46)
[2017-08-27] MEDS: RANITIDINE HCL 150 MG TABLET (FP) PO SCH ×2 (09:46→21:23)
[2017-08-27] MEDS: ASPIRIN 81 MG CHEWABLE TABLETS PO SCH (09:46)
[2017-08-27] MEDS: NICOTINE 14 MG/24 HOURS TOPICAL PATCH TD SCH (09:47)
[2017-08-27] MEDS: ACETAMINOPHEN 325 MG TABLET (FP) PO PRN (09:48)
[2017-08-27] MEDS: LIDOCAINE PATCH REMOVAL MC SCH (21:23)
[2017-08-27] MEDS: THIAMINE HCL 100 MG TABLET (FP) PO SCH (21:23)
[2017-08-27] MEDS: QUEtiapine FUMARATE 50 MG TABLET PO SCH (21:23)
[2017-08-27] MEDS: ATORVASTATIN CA 40 MG TABLET (FP) PO SCH (21:23)
[2017-08-27] MEDS: diphenhydrAMINE HCL 50 MG CAPSULE PO PRN (21:24)
[2017-08-27] MEDS: MELATONIN 5 MG TABLETS PO PRN (21:24)
[2017-08-28] MEDS: FLUTICASONE PROP 0.05% 16 GM NASAL SPRAY NS SCH (09:55)
[2017-08-28] MEDS: amLODIPine BESYLATE 10 MG TABLET (FP) PO SCH (09:56)
[2017-08-28] MEDS: ASPIRIN 81 MG CHEWABLE TABLETS PO SCH (09:56)
[2017-08-28] MEDS: RANITIDINE HCL 150 MG TABLET (FP) PO SCH ×2 (09:56→21:27)
[2017-08-28] MEDS: PRENATAL VITAMINS W/ FOLIC ACID TABLET (FP) PO SCH (09:56)
[2017-08-28] MEDS: AZITHROMYCIN 250 MG TABLET PO SCH (09:56)
[2017-08-28] MEDS: guaiFENesin/D-METHORPHAN HB 10 ML UNIT-DOSE CUPS PO PRN ×2 (09:57→21:29)
[2017-08-28] MEDS: LIDOCAINE 5% TOPICAL PATCH TP SCH (09:57)
[2017-08-28] MEDS: CITALOPRAM HYDROBROMIDE 20 MG TABLET (FP) PO SCH (09:57)
[2017-08-28] MEDS: NICOTINE 14 MG/24 HOURS TOPICAL PATCH TD SCH (09:57)
[2017-08-28] MEDS: THIAMINE HCL 100 MG TABLET (FP) PO SCH (21:27)
[2017-08-28] MEDS: QUEtiapine FUMARATE 50 MG TABLET PO SCH (21:27)
[2017-08-28] MEDS: diphenhydrAMINE HCL 50 MG CAPSULE PO PRN (21:27)
[2017-08-28] MEDS: ATORVASTATIN CA 40 MG TABLET (FP) PO SCH (21:27)
[2017-08-28] MEDS: LIDOCAINE PATCH REMOVAL MC SCH (22:00)
[2017-08-29] MEDS: FLUTICASONE PROP 0.05% 16 GM NASAL SPRAY NS SCH (09:58)
[2017-08-29] MEDS: RANITIDINE HCL 150 MG TABLET (FP) PO SCH ×2 (09:58→21:23)
[2017-08-29] MEDS: LIDOCAINE 5% TOPICAL PATCH TP SCH (09:58)
[2017-08-29] MEDS: PRENATAL VITAMINS W/ FOLIC ACID TABLET (FP) PO SCH (09:58)
[2017-08-29] MEDS: amLODIPine BESYLATE 10 MG TABLET (FP) PO SCH (09:58)
[2017-08-29] MEDS: ASPIRIN 81 MG CHEWABLE TABLETS PO SCH (09:58)
[2017-08-29] MEDS: CITALOPRAM HYDROBROMIDE 20 MG TABLET (FP) PO SCH (09:58)
[2017-08-29] MEDS: NICOTINE 14 MG/24 HOURS TOPICAL PATCH TD SCH (09:59)
[2017-08-29] MEDS: guaiFENesin/D-METHORPHAN HB 10 ML UNIT-DOSE CUPS PO PRN ×2 (10:02→21:23)
[2017-08-29] MEDS: LIDOCAINE PATCH REMOVAL MC SCH (21:22)
[2017-08-29] MEDS: ATORVASTATIN CA 40 MG TABLET (FP) PO SCH (21:23)
[2017-08-29] MEDS: QUEtiapine FUMARATE 50 MG TABLET PO SCH (21:23)
[2017-08-29] MEDS: THIAMINE HCL 100 MG TABLET (FP) PO SCH (21:23)
[2017-08-29] MEDS: diphenhydrAMINE HCL 50 MG CAPSULE PO PRN (21:23)
[2017-08-30] MEDS: ASPIRIN 81 MG CHEWABLE TABLETS PO SCH (09:46)
[2017-08-30] MEDS: CITALOPRAM HYDROBROMIDE 20 MG TABLET (FP) PO SCH (09:46)
[2017-08-30] MEDS: RANITIDINE HCL 150 MG TABLET (FP) PO SCH ×2 (09:46→21:24)
[2017-08-30] MEDS: PRENATAL VITAMINS W/ FOLIC ACID TABLET (FP) PO SCH (09:46)
[2017-08-30] MEDS: amLODIPine BESYLATE 10 MG TABLET (FP) PO SCH (09:46)
[2017-08-30] MEDS: LIDOCAINE 5% TOPICAL PATCH TP SCH (09:47)
[2017-08-30] MEDS: FLUTICASONE PROP 0.05% 16 GM NASAL SPRAY NS SCH (09:47)
[2017-08-30] MEDS: guaiFENesin/D-METHORPHAN HB 10 ML UNIT-DOSE CUPS PO PRN ×2 (09:48→21:24)
[2017-08-30] MEDS: NICOTINE 14 MG/24 HOURS TOPICAL PATCH TD SCH (09:54)
[2017-08-30] MEDS: THIAMINE HCL 100 MG TABLET (FP) PO SCH (21:24)
[2017-08-30] MEDS: diphenhydrAMINE HCL 50 MG CAPSULE PO PRN (21:24)
[2017-08-30] MEDS: QUEtiapine FUMARATE 50 MG TABLET PO SCH (21:24)
[2017-08-30] MEDS: ATORVASTATIN CA 40 MG TABLET (FP) PO SCH (21:24)
[2017-08-30] MEDS: LIDOCAINE PATCH REMOVAL MC SCH (21:25)
[2017-08-31] MEDS ORDERED: PT OWN MED DRAWER 7, Y5N ONE (08:27)
[2017-08-31] MEDS: PRENATAL VITAMINS W/ FOLIC ACID TABLET (FP) PO SCH (09:52)
[2017-08-31] MEDS: FLUTICASONE PROP 0.05% 16 GM NASAL SPRAY NS SCH (09:53)
[2017-08-31] MEDS: amLODIPine BESYLATE 10 MG TABLET (FP) PO SCH (09:53)
[2017-08-31] MEDS: ASPIRIN 81 MG CHEWABLE TABLETS PO SCH (09:53)
[2017-08-31] MEDS: CITALOPRAM HYDROBROMIDE 20 MG TABLET (FP) PO SCH (09:53)
[2017-08-31] MEDS: RANITIDINE HCL 150 MG TABLET (FP) PO SCH ×2 (09:53→21:23)
[2017-08-31] MEDS: LIDOCAINE 5% TOPICAL PATCH TP SCH (09:54)
[2017-08-31] MEDS: NICOTINE 14 MG/24 HOURS TOPICAL PATCH TD SCH (09:54)
[2017-08-31] MEDS: guaiFENesin/D-METHORPHAN HB 10 ML UNIT-DOSE CUPS PO PRN ×2 (09:55→21:22)
[2017-08-31] MEDS: QUEtiapine FUMARATE 50 MG TABLET PO SCH (21:22)
[2017-08-31] MEDS: diphenhydrAMINE HCL 50 MG CAPSULE PO PRN (21:22)
[2017-08-31] MEDS: THIAMINE HCL 100 MG TABLET (FP) PO SCH (21:22)
[2017-08-31] MEDS: LIDOCAINE PATCH REMOVAL MC SCH (21:23)
[2017-08-31] MEDS: ATORVASTATIN CA 40 MG TABLET (FP) PO SCH (21:23)
[2017-09-01] MEDS ORDERED: PT OWN MED DRAWER 7, Y5N ONE (08:30)
--- NOTE | 2017-09-01 09:30 | PN ---
Psychiatric Progress Note Vital Signs: Vital Signs Period Temp Pulse Resp BP Sys/Vásquez Pulse Ox Last 24 Hr 98.5 F 89-92 16-18 114-119/75-81 Date of Session: 09/01/17 Chief Complaint:: Discharge visit HPI: Patient addressed Alcohol dependence comorbid with Alcohol induced mood disorder. ROS: Multiple medical problems. Current Medications: Active Medications Generic Name Dose Route Start Last Admin Trade Name Freq PRN Reason Stop Dose Admin Acetaminophen 650 mg 08/14/17 12:43 08/27/17 09:48 Tylenol - PO 650 mg Q4H PRN Administration FEVER Al Hydroxide/Mg Hydroxide 30 ml 08/14/17 12:43 08/29/17 14:58 Mylanta Oral Suspension - PO 30 ml Q6H PRN Administration DYSPEPSIA Albuterol Sulfate 2 puff 08/14/17 12:44 08/25/17 13:29 Ventolin Hfa Inhaler - IH 2 puff Q4H PRN Administration ASTHMA Amlodipine Besylate 10 mg 08/15/17 10:00 08/31/17 09:53 Norvasc - PO 10 mg DAILY BHAVANI Administration Aspirin 81 mg 08/15/17 10:00 08/31/17 09:53 Asa - PO 81 mg DAILY BHAVANI Administration Atorvastatin Calcium 40 mg 08/14/17 22:00 08/31/17 21:23 Lipitor - PO 40 mg HS BHAVANI Administration Citalopram Hydrobromide 20 mg 08/14/17 14:15 08/31/17 09:53 Celexa - PO 20 mg DAILY BHAVANI Administration Diphenhydramine HCl 50 mg 08/22/17 16:53 08/31/17 21:22 Benadryl - PO 50 mg HS PRN Administration INSOMNIA Eucalyptus/Menthol/Phenol/Sorbitol 1 each 08/14/17 12:43 Cepastat Lozenge - MM Q4H PRN SORE THROAT Fluticasone Propionate 2 spray 08/23/17 14:00 08/31/17 09:53 Flonase - NS 2 spray DAILY BHAVANI Administration Guaifenesin 10 ml 08/14/17 12:43 08/31/17 21:22 Robitussin Dm - PO 10 ml Q6H PRN Administration COUGH Lidocaine 1 patch 08/16/17 15:35 08/31/17 09:54 Lidoderm Patch - TP 1 patch DAILY BHAVANI Administration Loperamide HCl 4 mg 08/14/17 12:43 Imodium - PO Q6H PRN DIARRHEA Magnesium Citrate 300 ml 08/14/17 12:43 Citroma - PO Q48H PRN CONSTIPATION Magnesium Hydroxide 30 ml 08/14/17 12:43 Milk Of Magnesia - PO DAILY PRN CONSTIPATION Melatonin 5 mg 08/14/17 22:00 08/27/17 21:24 Melatonin PO 5 mg HS PRN Administration INSOMNIA Miscellaneous 1 each 08/16/17 22:00 08/31/17 21:23 Lidoderm Patch Removal MC 1 each DAILY@2200 BHAVANI Administration Nicotine 14 mg 08/14/17 12:43 08/31/17 09:54 Nicoderm Patch - TD Not Given DAILY BHAVANI Nicotine Polacrilex 2 mg 08/14/17 12:43 Nicorette Gum - BUC Q2H PRN NICOTINE REPLACEMENT RX Multivit/Folic Acid/Iron 1 tab 08/15/17 10:00 08/31/17 09:52 Vitamins (Sjr) - PO 1 tab DAILY BHAVANI Administration Pseudoephedrine/Triprolidine 1 combo 08/14/17 12:43 Actifed - PO TID PRN NASAL CONGESTION Quetiapine Fumarate 50 mg 08/14/17 22:00 08/31/17 21:22 Seroquel - PO 50 mg HS BHAVANI Administration Ranitidine HCl 150 mg 08/14/17 22:00 08/31/17 21:23 Zantac - PO 150 mg BID BHAVANI Administration Thiamine HCl 100 mg 08/14/17 22:00 08/31/17 21:22 Vitamin B1 - PO 100 mg HS BHAVANI Administration Current Side Effect: No Lab tests ordered: No Lab tests reviewed: Yes Provider note:: Patient will complete this program tomorrow 09/02/17.She has met her treatment goals and will continue to address her issues on outpatient basis at [facility] for woman in [facility].Patient reports finding that current medications :Seroquel 50 mg po hs and Celexa 20 mg o daily help to cope with depression,mood instability,insomnia.Scripts for 30 days provided. Therapy provided focusing on relapse prevention. Patient is stable for discharge tomorrow. 09/02/17. Total face to face time:: 30 Mental Status Exam - Mental Status Exam Alert and Oriented to: Time, Place, Person Cognitive Function: Grossly Intact Patient Appearance: Well Groomed Mood: Hopeful, Euthymic Affect: Appropriate, Mood Congruent Patient Behavior: Cooperative Speech Pattern: Clear Voice Loudness: Normal Thought Process: Goal Oriented Thought Disorder: Not Present Hallucinations: Denies Suicidal Ideation: Denies Homicidal Ideation: Denies Insight/Judgement: Fair Sleep: Fair Appetite: Fair Muscle strength/Tone: Normal Gait/Station: Normal Psychiatric Treatment Plan - Problem List (1) Renal insufficiency Current Visit: Yes (2) Hypertension Current Visit: Yes Qualifiers: Hypertension type: essential hypertension Qualified Code(s): I10 - Essential (primary) hypertension (3) TIA (transient ischemic attack) Current Visit: Yes (4) Alcohol-induced mood disorder Current Visit: Yes (5) Squamous cell cancer of epiglottis Current Visit: Yes (6) Hypercholesteremia Current Visit: Yes (7) Asthma Current Visit: No Qualifiers: Asthma severity: mild Asthma persistence: intermittent Asthma complication type: with status asthmaticus Qualified Code(s): J45.22 - Mild intermittent asthma with status asthmaticus (8) Nicotine dependence Current Visit: Yes Qualifiers: Nicotine product type: cigarettes Substance use status: in withdrawal Qualified Code(s): F17.213 - Nicotine dependence, cigarettes, with withdrawal (9) Sleep apnea Current Visit: Yes Qualifiers: Sleep apnea type: unspecified type Qualified Code(s): G47.30 - Sleep apnea , unspecified Comment: USING MACHINE AT HOME PERIODICALLY "NOT EVERYDAY"
[2017-09-01] MEDS: PRENATAL VITAMINS W/ FOLIC ACID TABLET (FP) PO SCH (09:40)
[2017-09-01] MEDS: ASPIRIN 81 MG CHEWABLE TABLETS PO SCH (09:40)
[2017-09-01] MEDS: CITALOPRAM HYDROBROMIDE 20 MG TABLET (FP) PO SCH (09:40)
[2017-09-01] MEDS: RANITIDINE HCL 150 MG TABLET (FP) PO SCH ×2 (09:41→21:17)
[2017-09-01] MEDS: amLODIPine BESYLATE 10 MG TABLET (FP) PO SCH (09:41)
[2017-09-01] MEDS: NICOTINE 14 MG/24 HOURS TOPICAL PATCH TD SCH (09:41)
[2017-09-01] MEDS: FLUTICASONE PROP 0.05% 16 GM NASAL SPRAY NS SCH (09:42)
[2017-09-01] MEDS: LIDOCAINE 5% TOPICAL PATCH TP SCH (09:42)
[2017-09-01] MEDS: guaiFENesin/D-METHORPHAN HB 10 ML UNIT-DOSE CUPS PO PRN ×2 (09:43→21:18)
--- NOTE | 2017-09-01 14:10 | PN ---
[facility] Progress Note Note: Patient scheduled for d/c for tomorrow. Patient stable. Follow up with PMD 1-2 weeks.
[2017-09-01] MEDS: diphenhydrAMINE HCL 50 MG CAPSULE PO PRN (21:16)
[2017-09-01] MEDS: LIDOCAINE PATCH REMOVAL MC SCH (21:16)
[2017-09-01] MEDS: MELATONIN 5 MG TABLETS PO PRN (21:16)
[2017-09-01] MEDS: QUEtiapine FUMARATE 50 MG TABLET PO SCH (21:17)
[2017-09-01] MEDS: ATORVASTATIN CA 40 MG TABLET (FP) PO SCH (21:17)
[2017-09-01] MEDS: THIAMINE HCL 100 MG TABLET (FP) PO SCH (21:17)
[2017-09-02 06:37] VITALS: TEMP 98.1
[2017-09-02] MEDS ORDERED: PT OWN MED DRAWER 7, Y5N ONE (08:52)
[2017-09-02] MEDS: PRENATAL VITAMINS W/ FOLIC ACID TABLET (FP) PO SCH (09:42)
[2017-09-02] MEDS: RANITIDINE HCL 150 MG TABLET (FP) PO SCH (09:42)
[2017-09-02] MEDS: LIDOCAINE 5% TOPICAL PATCH TP SCH (09:42)
[2017-09-02] MEDS: amLODIPine BESYLATE 10 MG TABLET (FP) PO SCH (09:42)
[2017-09-02] MEDS: CITALOPRAM HYDROBROMIDE 20 MG TABLET (FP) PO SCH (09:42)
[2017-09-02] MEDS: ASPIRIN 81 MG CHEWABLE TABLETS PO SCH (09:42)
[2017-09-02] MEDS: FLUTICASONE PROP 0.05% 16 GM NASAL SPRAY NS SCH (09:43)
[2017-09-02] MEDS: NICOTINE 14 MG/24 HOURS TOPICAL PATCH TD SCH (09:44)
[2017-09-02 11:15] VITALS: BP 117/69; PULSE 97
== END 2017-09-02 09:55 | disposition home or self-care (01) | DRG 642 ==
LOC: YASAS 11:10 → Y3E 11:31
PROVIDERS: ADMIT Psychiatry & Neurology Psychiatry; ATTEND Psychiatry & Neurology Psychiatry
PROC: HZ42ZZZ Group Counseling for Substance Abuse Treatment, Cognitive-Behavioral (ICD-10-PCS; principal; 2017-08-14)
DX: E78.00 Pure hypercholesterolemia, unspecified (principal); F14.20 Cocaine dependence, uncomplicated; J45.22 Mild intermittent asthma with status asthmaticus; F17.213 Nicotine dependence, cigarettes, with withdrawal; G45.9 Transient cerebral ischemic attack, unspecified; F10.20 Alcohol dependence, uncomplicated; I10 Essential (primary) hypertension; N28.9 Disorder of kidney and ureter, unspecified; G47.30 Sleep apnea, unspecified; C32.1 Malignant neoplasm of supraglottis; M54.5 Low back pain; F41.9 Anxiety disorder, unspecified; F39 Unspecified mood [affective] disorder
CPT/HCPCS: 71046-TC-FY; 82962

== ENCOUNTER 2023-01-27 16:34 | Inpatient (IN) | payer OTHER ==
[2023-01-27 17:15] VITALS: BMI 33.6
[2023-01-27] MEDS ORDERED: METOPROLOL TARTRATE 25 MG TABLET (FP) PO ONE (18:16)
[2023-01-27] MEDS ORDERED: ASPIRIN 81 MG CHEWABLE TABLETS PO SCH (18:30)
[2023-01-27] MEDS ORDERED: ASPIRIN 81 MG CHEWABLE TABLETS ONE (18:35)
[2023-01-27] MEDS ORDERED: METOPROLOL TARTRATE 25 MG TABLET (FP) ONE (18:35)
[2023-01-27] MEDS ORDERED: BISMUTH SUBSALICYLATE 524 MG/30 ML PO PRN (20:08)
[2023-01-27] MEDS ORDERED: BENZONATATE 200 MG CAPSULE PO PRN (20:08)
[2023-01-27] MEDS ORDERED: MAG HYDROX/AL HYDROX/SIMETH 30 ML UNIT-DOSE CUP PO PRN (20:08)
[2023-01-27] MEDS ORDERED: POLYETHYLENE GLYCOL (HEALTHYLAX) 3350 17 GM PACKET PO PRN (20:08)
[2023-01-27] MEDS ORDERED: ONDANSETRON *ODT* 4 MG TABLET SL PRN (20:08)
[2023-01-27] MEDS ORDERED: MAGNESIUM HYDROX 2400MG/30ML ORAL SUSPENSION 30 ML CUP PO PRN (20:08)
[2023-01-27] MEDS ORDERED: LOPERAMIDE HCL 2 MG CAPSULE PO PRN (20:08)
[2023-01-27] MEDS ORDERED: guaiFENesin 600 MG TABLET.ER (FP) PO PRN (20:08)
[2023-01-27] MEDS ORDERED: ACETAMINOPHEN 325 MG TABLET (FP) PO PRN (20:08)
[2023-01-27] MEDS ORDERED: IBUPROFEN 400 MG TABLET (FP) PO PRN (20:08)
[2023-01-27] MEDS ORDERED: BENZOCAINE/MENTHOL (CHLORASEPTIC ) LOZENGE MM PRN (20:08)
[2023-01-27] MEDS ORDERED: ALBUTEROL SO4 HFA INHALER IH PRN (20:12)
[2023-01-27] MEDS ORDERED: AMMONIUM LACTATE 12% LOTION 225 GM BOTTLE TP PRN (20:13)
[2023-01-27] MEDS ORDERED: FAMOTIDINE 10 MG TABLET PO SCH (20:15)
[2023-01-27] MEDS ORDERED: MELATONIN 5 MG TABLETS PO PRN (22:00)
[2023-01-27] MEDS: THIAMINE HCL 100 MG TABLET (FP) PO SCH (22:29)
[2023-01-28 08:52] LABS: CHLORIDE 106 mmol/L (98-107); POTASSIUM 4.1 mmol/L (3.5-5.1); SODIUM 138 mmol/L (136-145)
[2023-01-28 08:55] LABS: CALCIUM 9.3 mg/dL (8.5-10.1)
[2023-01-28 08:56] LABS: ALBUMIN 3.4 g/dl (3.4-5.0); ANION GAP 3 mmol/L (4-13); BLOOD UREA NITROGEN 12.8 mg/dL (7-18); CO2 30 mmol/L (21-32); GLUCOSE,RANDOM 103 mg/dL (74-106)
[2023-01-28 08:57] LABS: HEMOGLOBIN 11.8 GM/dL (10.7-15.3); MEAN CELL VOLUME 84.5 fl (80-96); MEAN PLT VOLUME 8.3 fl (7.5-11.1); PLATELET COUNT 288 10^3/uL (134-434); RBC 4.38 M/mm3 (3.60-5.2); RDW 16.4 % (11.6-15.6); WHITE BLOOD COUNT 4.9 K/mm3 (4.0-10.0)
[2023-01-28 08:59] LABS: CREATININE 1.2 mg/dL (0.55-1.3); SGOT/AST 27 U/L (15-37); SGPT/ALT 23 U/L (13-61)
[2023-01-28 09:00] LABS: TOT PROT 6.8 g/dl (6.4-8.2)
[2023-01-28 09:01] LABS: BILIRUBIN,TOTAL 0.6 mg/dL (0.2-1)
[2023-01-28 09:02] LABS: ALK PHOS 168 U/L (45-117)
[2023-01-28] MEDS ORDERED: PATIENT'S OWN MEDICATION (NON-FORMULARY) (Amlodipine Besylate/Benazepril [Lotrel 5-10 Mg C PO SCH (10:00)
[2023-01-28] MEDS: ASPIRIN 81 MG CHEWABLE TABLETS PO SCH (10:00)
[2023-01-28] MEDS: PRENATAL VITAMINS W/ FOLIC ACID TABLET (FP) PO SCH (10:00)
[2023-01-28] MEDS: LISINOPRIL 10 MG TABLET PO SCH (10:00)
[2023-01-28] MEDS: CITALOPRAM HYDROBROMIDE 20 MG TABLET PO SCH (10:00)
[2023-01-28] MEDS: amLODIPine BESYLATE 5 MG TABLET (FP) PO SCH (10:01)
[2023-01-28] MEDS: CALCIUM 500MG/VIT-D 200 UNITS COMBO TABLET (FP) PO SCH ×3 (10:01→22:28)
[2023-01-28] MEDS ORDERED: QUEtiapine FUMARATE 50 MG TABLET PO SCH (22:00)
[2023-01-28] MEDS: THIAMINE HCL 100 MG TABLET (FP) PO SCH (22:28)
[2023-01-29 06:38] VITALS: RESP 18
[2023-01-29 09:27] VITALS: BP 163/87; PULSE 83; TEMP 97.5
[2023-01-29] MEDS: PRENATAL VITAMINS W/ FOLIC ACID TABLET (FP) PO SCH (10:05)
[2023-01-29] MEDS: ASPIRIN 81 MG CHEWABLE TABLETS PO SCH (10:05)
[2023-01-29] MEDS: LISINOPRIL 10 MG TABLET PO SCH (10:05)
[2023-01-29] MEDS: amLODIPine BESYLATE 5 MG TABLET (FP) PO SCH (10:05)
[2023-01-29] MEDS: CALCIUM 500MG/VIT-D 200 UNITS COMBO TABLET (FP) PO SCH (10:05)
[2023-01-29] MEDS: CITALOPRAM HYDROBROMIDE 20 MG TABLET PO SCH (10:05)
== END 2023-01-29 10:14 | disposition home or self-care (01) | DRG 897 ==
LOC: YASAS 16:34 → Y6N 20:06
PROVIDERS: ADMIT Allergy & Immunology; ATTEND Surgery
PROC: HZ2ZZZZ Detoxification Services for Substance Abuse Treatment (ICD-10-PCS; principal; 2023-01-27)
DX: F10.230 Alcohol dependence with withdrawal, uncomplicated (principal); F14.20 Cocaine dependence, uncomplicated; F17.210 Nicotine dependence, cigarettes, uncomplicated; E78.00 Pure hypercholesterolemia, unspecified; I10 Essential (primary) hypertension; K21.9 Gastro-esophageal reflux disease without esophagitis; Z86.73 Personal history of transient ischemic attack (TIA), and cerebral infarction without residual deficits; Z85.819 Personal history of malignant neoplasm of unspecified site of lip, oral cavity, and pharynx
CPT/HCPCS: 36415; 80053; 80307; 85027; 86780; 87635; 87811; 93005; 93010

== ENCOUNTER 2023-02-03 10:30 | Inpatient (IN) | payer OTHER ==
[2023-02-03 11:27] VITALS: BMI 35.1
[2023-02-03] MEDS ORDERED: guaiFENesin 600 MG TABLET.ER (FP) PO PRN (12:01)
[2023-02-03] MEDS ORDERED: NALOXONE HCL 0.4 MG/ML VIAL IM PRN (12:01)
[2023-02-03] MEDS ORDERED: NALOXONE HCL (KLOXXADO) 8 MG SPRAY NS PRN (12:01)
[2023-02-03] MEDS ORDERED: BENZOCAINE/MENTHOL (CHLORASEPTIC ) LOZENGE MM PRN (12:01)
[2023-02-03] MEDS ORDERED: POLYETHYLENE GLYCOL (HEALTHYLAX) 3350 17 GM PACKET PO PRN (12:01)
[2023-02-03] MEDS ORDERED: hydrOXYzine PAMOATE 25 MG CAPSULE (FP) PO PRN (12:01)
[2023-02-03] MEDS ORDERED: IBUPROFEN 400 MG TABLET (FP) PO PRN (12:01)
[2023-02-03] MEDS ORDERED: MAGNESIUM HYDROX 2400MG/30ML ORAL SUSPENSION 30 ML CUP PO PRN (12:01)
[2023-02-03] MEDS ORDERED: BENZONATATE 200 MG CAPSULE PO PRN (12:01)
[2023-02-03] MEDS ORDERED: COLLOIDAL OATMEAL 1 BAR EACH TP PRN (12:01)
[2023-02-03] MEDS ORDERED: MAG HYDROX/AL HYDROX/SIMETH 30 ML UNIT-DOSE CUP PO PRN (12:01)
[2023-02-03] MEDS ORDERED: IBUPROFEN 600 MG TABLET (FP) PO PRN (12:01)
[2023-02-03] MEDS ORDERED: LOPERAMIDE HCL 2 MG CAPSULE PO PRN (12:01)
[2023-02-03] MEDS ORDERED: ALBUTEROL SO4 HFA INHALER IH PRN (12:03)
[2023-02-03] MEDS: PRENATAL VITAMINS W/ FOLIC ACID TABLET (FP) PO SCH (13:19)
[2023-02-03] MEDS: NICOTINE 14 MG/24 HOURS TOPICAL PATCH TD SCH (13:19)
[2023-02-03] MEDS ORDERED: NICOTINE 14 MG/24 HOURS TOPICAL PATCH TD ONE (14:57)
[2023-02-03] MEDS ORDERED: TUBERCULIN PPD 5 TU/0.1ML VIAL ID ONE (19:15)
[2023-02-03] MEDS: THIAMINE HCL 100 MG TABLET (FP) PO SCH (21:03)
[2023-02-03] MEDS: MELATONIN 5 MG TABLETS PO SCH (21:03)
[2023-02-03] MEDS: ATORVASTATIN CA 40 MG TABLET (FP) PO SCH (21:03)
[2023-02-03] MEDS: CALCIUM 500MG/VIT-D 200 UNITS COMBO TABLET (FP) PO SCH (21:46)
[2023-02-04 08:32] LABS: HEMATOCRIT 35.6 % (32.4-45.2); HEMOGLOBIN 11.3 GM/dL (10.7-15.3); MCH 26.8 pg (25.7-33.7); MCHC 31.8 g/dl (32.0-36.0); MEAN CELL VOLUME 84.4 fl (80-96); MEAN PLT VOLUME 8.6 fl (7.5-11.1); PLATELET COUNT 280 10^3/uL (134-434); RBC 4.22 M/mm3 (3.60-5.2); RDW 16.6 % (11.6-15.6); WHITE BLOOD COUNT 4.3 K/mm3 (4.0-10.0)
[2023-02-04 09:17] LABS: CHLORIDE 107 mmol/L (98-107); POTASSIUM 4.1 mmol/L (3.5-5.1); SODIUM 142 mmol/L (136-145)
[2023-02-04 09:40] LABS: ALBUMIN 3.3 g/dl (3.4-5.0); ANION GAP 5 mmol/L (4-13); BLOOD UREA NITROGEN 17.8 mg/dL (7-18); CALCIUM 9.5 mg/dL (8.5-10.1); CO2 30 mmol/L (21-32); GLUCOSE,RANDOM 90 mg/dL (74-106)
[2023-02-04 09:43] LABS: SGPT/ALT 23 U/L (13-61)
[2023-02-04 09:44] LABS: CREATININE 1.1 mg/dL (0.55-1.3)
[2023-02-04 09:45] LABS: SGOT/AST 22 U/L (15-37)
[2023-02-04 09:46] LABS: ALK PHOS 153 U/L (45-117); TOT PROT 6.5 g/dl (6.4-8.2)
[2023-02-04 09:47] LABS: BILIRUBIN,TOTAL 0.4 mg/dL (0.2-1)
[2023-02-04] MEDS: ASPIRIN COATED 81 MG TABLET.EC PO SCH (09:58)
[2023-02-04] MEDS: CALCIUM 500MG/VIT-D 200 UNITS COMBO TABLET (FP) PO SCH ×2 (09:58→21:05)
[2023-02-04] MEDS: FAMOTIDINE 20 MG TABLET PO SCH (09:58)
[2023-02-04] MEDS: NICOTINE 14 MG/24 HOURS TOPICAL PATCH TD SCH (09:59)
[2023-02-04] MEDS: PRENATAL VITAMINS W/ FOLIC ACID TABLET (FP) PO SCH (09:59)
[2023-02-04] MEDS ORDERED: amLODIPine BESYLATE 5 MG TABLET (FP) PO SCH (10:00)
[2023-02-04] MEDS ORDERED: LISINOPRIL 10 MG TABLET PO SCH (10:00)
[2023-02-04 13:10] LABS: URINE APPEARANCE CLEAR; URINE BILIRUBIN NEGATIVE (NEGATIVE); URINE COLOR YELLOW; URINE GLUCOSE (UA) NEGATIVE (NEGATIVE); URINE KETONE NEGATIVE (NEGATIVE); URINE LEUK ESTERASE NEGATIVE (NEGATIVE); URINE NITRITE NEGATIVE (NEGATIVE); URINE PROTEIN NEGATIVE (NEGATIVE); URINE UROBILINOGEN 0.2 mg/dL (0.2-1.0)
[2023-02-04] MEDS: MELATONIN 5 MG TABLETS PO SCH (21:05)
[2023-02-04] MEDS: ATORVASTATIN CA 40 MG TABLET (FP) PO SCH (21:05)
[2023-02-04] MEDS: QUEtiapine FUMARATE 50 MG TABLET PO SCH (21:06)
[2023-02-04] MEDS: THIAMINE HCL 100 MG TABLET (FP) PO SCH (21:06)
[2023-02-05] MEDS: amLODIPine BESYLATE 5 MG TABLET (FP) PO SCH (06:16)
[2023-02-05] MEDS: LISINOPRIL 10 MG TABLET PO SCH (06:16)
[2023-02-05] MEDS: CITALOPRAM HYDROBROMIDE 20 MG TABLET PO SCH (10:28)
[2023-02-05] MEDS: CALCIUM 500MG/VIT-D 200 UNITS COMBO TABLET (FP) PO SCH ×2 (10:28→22:09)
[2023-02-05] MEDS: PRENATAL VITAMINS W/ FOLIC ACID TABLET (FP) PO SCH (10:28)
[2023-02-05] MEDS: ASPIRIN COATED 81 MG TABLET.EC PO SCH (10:29)
[2023-02-05] MEDS: FAMOTIDINE 20 MG TABLET PO SCH (10:29)
[2023-02-05] MEDS: NICOTINE 14 MG/24 HOURS TOPICAL PATCH TD SCH (10:31)
[2023-02-05] MEDS: QUEtiapine FUMARATE 50 MG TABLET PO SCH (21:01)
[2023-02-05] MEDS: THIAMINE HCL 100 MG TABLET (FP) PO SCH (21:01)
[2023-02-05] MEDS: MELATONIN 5 MG TABLETS PO SCH (21:01)
[2023-02-05] MEDS: ATORVASTATIN CA 40 MG TABLET (FP) PO SCH (21:01)
[2023-02-06] MEDS: LISINOPRIL 10 MG TABLET PO SCH (06:44)
[2023-02-06] MEDS: amLODIPine BESYLATE 5 MG TABLET (FP) PO SCH (06:44)
[2023-02-06] MEDS: ASPIRIN COATED 81 MG TABLET.EC PO SCH (10:18)
[2023-02-06] MEDS: CALCIUM 500MG/VIT-D 200 UNITS COMBO TABLET (FP) PO SCH ×2 (10:18→21:05)
[2023-02-06] MEDS: CITALOPRAM HYDROBROMIDE 20 MG TABLET PO SCH (10:18)
[2023-02-06] MEDS: FAMOTIDINE 20 MG TABLET PO SCH (10:18)
[2023-02-06] MEDS: PRENATAL VITAMINS W/ FOLIC ACID TABLET (FP) PO SCH (10:18)
[2023-02-06] MEDS: NICOTINE 14 MG/24 HOURS TOPICAL PATCH TD SCH (10:19)
[2023-02-06] MEDS: ATORVASTATIN CA 40 MG TABLET (FP) PO SCH (21:05)
[2023-02-06] MEDS: THIAMINE HCL 100 MG TABLET (FP) PO SCH (21:05)
[2023-02-06] MEDS: QUEtiapine FUMARATE 50 MG TABLET PO SCH (21:06)
[2023-02-06] MEDS: MELATONIN 5 MG TABLETS PO SCH (21:06)
[2023-02-07] MEDS: LISINOPRIL 10 MG TABLET PO SCH (06:15)
[2023-02-07] MEDS: amLODIPine BESYLATE 5 MG TABLET (FP) PO SCH (06:15)
[2023-02-07] MEDS: PRENATAL VITAMINS W/ FOLIC ACID TABLET (FP) PO SCH (09:54)
[2023-02-07] MEDS: CALCIUM 500MG/VIT-D 200 UNITS COMBO TABLET (FP) PO SCH ×2 (09:54→21:11)
[2023-02-07] MEDS: FAMOTIDINE 20 MG TABLET PO SCH (09:54)
[2023-02-07] MEDS: ASPIRIN COATED 81 MG TABLET.EC PO SCH (09:54)
[2023-02-07] MEDS: CITALOPRAM HYDROBROMIDE 20 MG TABLET PO SCH (09:54)
[2023-02-07] MEDS: NICOTINE 14 MG/24 HOURS TOPICAL PATCH TD SCH (09:55)
[2023-02-07] MEDS: MELATONIN 5 MG TABLETS PO SCH (21:10)
[2023-02-07] MEDS: ATORVASTATIN CA 40 MG TABLET (FP) PO SCH (21:11)
[2023-02-07] MEDS: QUEtiapine FUMARATE 50 MG TABLET PO SCH (21:11)
[2023-02-07] MEDS: THIAMINE HCL 100 MG TABLET (FP) PO SCH (21:11)
[2023-02-08] MEDS: LISINOPRIL 10 MG TABLET PO SCH (06:37)
[2023-02-08] MEDS: amLODIPine BESYLATE 5 MG TABLET (FP) PO SCH (06:37)
[2023-02-08 07:53] VITALS: RESP 18
[2023-02-08] MEDS: FAMOTIDINE 20 MG TABLET PO SCH (09:52)
[2023-02-08] MEDS: CITALOPRAM HYDROBROMIDE 20 MG TABLET PO SCH (09:52)
[2023-02-08] MEDS: ASPIRIN COATED 81 MG TABLET.EC PO SCH (09:52)
[2023-02-08] MEDS: NICOTINE 14 MG/24 HOURS TOPICAL PATCH TD SCH (09:53)
[2023-02-08] MEDS: CALCIUM 500MG/VIT-D 200 UNITS COMBO TABLET (FP) PO SCH ×2 (09:53→21:18)
[2023-02-08] MEDS: PRENATAL VITAMINS W/ FOLIC ACID TABLET (FP) PO SCH (09:53)
[2023-02-08] MEDS ORDERED: PATIENT'S OWN MEDICATION (NON-FORMULARY) (Diclofenac Sodium 0.01 MG/MG Gel) TP SCH (11:00)
[2023-02-08] MEDS: METHYL SALICYLATE/MENTHOL OINT 30 GM TUBE TP PRN (13:10)
[2023-02-08] MEDS: THIAMINE HCL 100 MG TABLET (FP) PO SCH (21:15)
[2023-02-08] MEDS: QUEtiapine FUMARATE 50 MG TABLET PO SCH (21:15)
[2023-02-08] MEDS: ATORVASTATIN CA 40 MG TABLET (FP) PO SCH (21:15)
[2023-02-08] MEDS: MELATONIN 5 MG TABLETS PO SCH (21:16)
[2023-02-09] MEDS: amLODIPine BESYLATE 5 MG TABLET (FP) PO SCH (06:38)
[2023-02-09] MEDS: LISINOPRIL 10 MG TABLET PO SCH (06:38)
[2023-02-09] MEDS: NICOTINE 14 MG/24 HOURS TOPICAL PATCH TD SCH (09:57)
[2023-02-09] MEDS: FAMOTIDINE 20 MG TABLET PO SCH (09:57)
[2023-02-09] MEDS: PRENATAL VITAMINS W/ FOLIC ACID TABLET (FP) PO SCH (09:57)
[2023-02-09] MEDS: ASPIRIN COATED 81 MG TABLET.EC PO SCH (09:57)
[2023-02-09] MEDS: CALCIUM 500MG/VIT-D 200 UNITS COMBO TABLET (FP) PO SCH ×2 (09:57→21:03)
[2023-02-09] MEDS: CITALOPRAM HYDROBROMIDE 20 MG TABLET PO SCH (09:57)
[2023-02-09] MEDS: METHYL SALICYLATE/MENTHOL OINT 30 GM TUBE TP PRN (12:50)
[2023-02-09] MEDS: ATORVASTATIN CA 40 MG TABLET (FP) PO SCH (21:03)
[2023-02-09] MEDS: QUEtiapine FUMARATE 50 MG TABLET PO SCH (21:04)
[2023-02-09] MEDS: MELATONIN 5 MG TABLETS PO SCH (21:04)
[2023-02-09] MEDS: THIAMINE HCL 100 MG TABLET (FP) PO SCH (21:04)
[2023-02-10] MEDS: LISINOPRIL 10 MG TABLET PO SCH (06:26)
[2023-02-10] MEDS: amLODIPine BESYLATE 5 MG TABLET (FP) PO SCH (06:27)
[2023-02-10] MEDS: CITALOPRAM HYDROBROMIDE 20 MG TABLET PO SCH (10:16)
[2023-02-10] MEDS: ASPIRIN COATED 81 MG TABLET.EC PO SCH (10:16)
[2023-02-10] MEDS: CALCIUM 500MG/VIT-D 200 UNITS COMBO TABLET (FP) PO SCH ×2 (10:17→21:15)
[2023-02-10] MEDS: NICOTINE 14 MG/24 HOURS TOPICAL PATCH TD SCH (10:17)
[2023-02-10] MEDS: PRENATAL VITAMINS W/ FOLIC ACID TABLET (FP) PO SCH (10:17)
[2023-02-10] MEDS: FAMOTIDINE 20 MG TABLET PO SCH (10:17)
[2023-02-10] MEDS: THIAMINE HCL 100 MG TABLET (FP) PO SCH (21:15)
[2023-02-10] MEDS: QUEtiapine FUMARATE 50 MG TABLET PO SCH (21:15)
[2023-02-10] MEDS: MELATONIN 5 MG TABLETS PO SCH (21:15)
[2023-02-10] MEDS: ATORVASTATIN CA 40 MG TABLET (FP) PO SCH (21:16)
[2023-02-11] MEDS: LISINOPRIL 10 MG TABLET PO SCH (06:16)
[2023-02-11] MEDS: amLODIPine BESYLATE 5 MG TABLET (FP) PO SCH (06:16)
[2023-02-11] MEDS: CITALOPRAM HYDROBROMIDE 20 MG TABLET PO SCH (10:13)
[2023-02-11] MEDS: FAMOTIDINE 20 MG TABLET PO SCH (10:13)
[2023-02-11] MEDS: NICOTINE 14 MG/24 HOURS TOPICAL PATCH TD SCH (10:13)
[2023-02-11] MEDS: ASPIRIN COATED 81 MG TABLET.EC PO SCH (10:13)
[2023-02-11] MEDS: PRENATAL VITAMINS W/ FOLIC ACID TABLET (FP) PO SCH (10:13)
[2023-02-11] MEDS: CALCIUM 500MG/VIT-D 200 UNITS COMBO TABLET (FP) PO SCH ×2 (10:13→21:28)
[2023-02-11] MEDS: MELATONIN 5 MG TABLETS PO SCH (21:28)
[2023-02-11] MEDS: QUEtiapine FUMARATE 50 MG TABLET PO SCH (21:28)
[2023-02-11] MEDS: THIAMINE HCL 100 MG TABLET (FP) PO SCH (21:28)
[2023-02-11] MEDS: ATORVASTATIN CA 40 MG TABLET (FP) PO SCH (21:28)
[2023-02-12] MEDS: amLODIPine BESYLATE 5 MG TABLET (FP) PO SCH (06:21)
[2023-02-12] MEDS: LISINOPRIL 10 MG TABLET PO SCH (06:21)
[2023-02-12] MEDS: PRENATAL VITAMINS W/ FOLIC ACID TABLET (FP) PO SCH (09:57)
[2023-02-12] MEDS: ASPIRIN COATED 81 MG TABLET.EC PO SCH (09:57)
[2023-02-12] MEDS: CALCIUM 500MG/VIT-D 200 UNITS COMBO TABLET (FP) PO SCH ×2 (09:57→22:07)
[2023-02-12] MEDS: FAMOTIDINE 20 MG TABLET PO SCH (09:57)
[2023-02-12] MEDS: NICOTINE 14 MG/24 HOURS TOPICAL PATCH TD SCH (09:57)
[2023-02-12] MEDS: CITALOPRAM HYDROBROMIDE 20 MG TABLET PO SCH (09:57)
[2023-02-12] MEDS: MELATONIN 5 MG TABLETS PO SCH (22:02)
[2023-02-12] MEDS: ATORVASTATIN CA 40 MG TABLET (FP) PO SCH (22:03)
[2023-02-12] MEDS: THIAMINE HCL 100 MG TABLET (FP) PO SCH (22:04)
[2023-02-12] MEDS: QUEtiapine FUMARATE 50 MG TABLET PO SCH (22:04)
[2023-02-13] MEDS: LISINOPRIL 10 MG TABLET PO SCH (05:38)
[2023-02-13] MEDS: amLODIPine BESYLATE 5 MG TABLET (FP) PO SCH (05:38)
[2023-02-13] MEDS: CITALOPRAM HYDROBROMIDE 20 MG TABLET PO SCH (09:34)
[2023-02-13] MEDS: ASPIRIN COATED 81 MG TABLET.EC PO SCH (09:34)
[2023-02-13] MEDS: FAMOTIDINE 20 MG TABLET PO SCH (09:34)
[2023-02-13] MEDS: PRENATAL VITAMINS W/ FOLIC ACID TABLET (FP) PO SCH (09:35)
[2023-02-13] MEDS: NICOTINE 14 MG/24 HOURS TOPICAL PATCH TD SCH (09:35)
[2023-02-13] MEDS: CALCIUM 500MG/VIT-D 200 UNITS COMBO TABLET (FP) PO SCH ×2 (12:30→21:49)
[2023-02-13] MEDS: ATORVASTATIN CA 40 MG TABLET (FP) PO SCH (21:48)
[2023-02-13] MEDS: MELATONIN 5 MG TABLETS PO SCH (21:49)
[2023-02-13] MEDS: QUEtiapine FUMARATE 50 MG TABLET PO SCH (21:49)
[2023-02-13] MEDS: THIAMINE HCL 100 MG TABLET (FP) PO SCH (21:49)
[2023-02-14] MEDS: amLODIPine BESYLATE 5 MG TABLET (FP) PO SCH (06:17)
[2023-02-14] MEDS: LISINOPRIL 10 MG TABLET PO SCH (06:17)
[2023-02-14] MEDS: CALCIUM 500MG/VIT-D 200 UNITS COMBO TABLET (FP) PO SCH ×2 (09:58→22:00)
[2023-02-14] MEDS: NICOTINE 14 MG/24 HOURS TOPICAL PATCH TD SCH (09:58)
[2023-02-14] MEDS: PRENATAL VITAMINS W/ FOLIC ACID TABLET (FP) PO SCH (09:58)
[2023-02-14] MEDS: CITALOPRAM HYDROBROMIDE 20 MG TABLET PO SCH (09:58)
[2023-02-14] MEDS: ASPIRIN COATED 81 MG TABLET.EC PO SCH (09:58)
[2023-02-14] MEDS: FAMOTIDINE 20 MG TABLET PO SCH (09:58)
[2023-02-14] MEDS: ATORVASTATIN CA 40 MG TABLET (FP) PO SCH (22:00)
[2023-02-14] MEDS: THIAMINE HCL 100 MG TABLET (FP) PO SCH (22:00)
[2023-02-14] MEDS: MELATONIN 5 MG TABLETS PO SCH (22:00)
[2023-02-14] MEDS: QUEtiapine FUMARATE 50 MG TABLET PO SCH (22:00)
[2023-02-15] MEDS: LISINOPRIL 10 MG TABLET PO SCH (06:05)
[2023-02-15] MEDS: amLODIPine BESYLATE 5 MG TABLET (FP) PO SCH (06:05)
[2023-02-15] MEDS: CALCIUM 500MG/VIT-D 200 UNITS COMBO TABLET (FP) PO SCH ×2 (10:04→21:43)
[2023-02-15] MEDS: CITALOPRAM HYDROBROMIDE 20 MG TABLET PO SCH (10:04)
[2023-02-15] MEDS: ASPIRIN COATED 81 MG TABLET.EC PO SCH (10:04)
[2023-02-15] MEDS: PRENATAL VITAMINS W/ FOLIC ACID TABLET (FP) PO SCH (10:04)
[2023-02-15] MEDS: FAMOTIDINE 20 MG TABLET PO SCH (10:04)
[2023-02-15] MEDS: NICOTINE 14 MG/24 HOURS TOPICAL PATCH TD SCH (10:05)
[2023-02-15] MEDS: MELATONIN 5 MG TABLETS PO SCH (21:43)
[2023-02-15] MEDS: QUEtiapine FUMARATE 50 MG TABLET PO SCH (21:43)
[2023-02-15] MEDS: THIAMINE HCL 100 MG TABLET (FP) PO SCH (21:43)
[2023-02-15] MEDS: ATORVASTATIN CA 40 MG TABLET (FP) PO SCH (21:43)
[2023-02-16] MEDS: LISINOPRIL 10 MG TABLET PO SCH (06:25)
[2023-02-16] MEDS: amLODIPine BESYLATE 5 MG TABLET (FP) PO SCH (06:25)
[2023-02-16] MEDS: ACETAMINOPHEN 325 MG TABLET (FP) PO PRN (06:25)
[2023-02-16] MEDS: PRENATAL VITAMINS W/ FOLIC ACID TABLET (FP) PO SCH (10:00)
[2023-02-16] MEDS: CALCIUM 500MG/VIT-D 200 UNITS COMBO TABLET (FP) PO SCH ×2 (10:00→21:22)
[2023-02-16] MEDS: FAMOTIDINE 20 MG TABLET PO SCH (10:00)
[2023-02-16] MEDS: CITALOPRAM HYDROBROMIDE 20 MG TABLET PO SCH (10:00)
[2023-02-16] MEDS: ASPIRIN COATED 81 MG TABLET.EC PO SCH (10:00)
[2023-02-16] MEDS: NICOTINE 14 MG/24 HOURS TOPICAL PATCH TD SCH (10:02)
[2023-02-16] MEDS: QUEtiapine FUMARATE 50 MG TABLET PO SCH (21:22)
[2023-02-16] MEDS: THIAMINE HCL 100 MG TABLET (FP) PO SCH (21:22)
[2023-02-16] MEDS: ATORVASTATIN CA 40 MG TABLET (FP) PO SCH (21:22)
[2023-02-16] MEDS: MELATONIN 5 MG TABLETS PO SCH (21:23)
[2023-02-17] MEDS: amLODIPine BESYLATE 5 MG TABLET (FP) PO SCH (05:54)
[2023-02-17] MEDS: LISINOPRIL 10 MG TABLET PO SCH (05:54)
[2023-02-17] MEDS: PRENATAL VITAMINS W/ FOLIC ACID TABLET (FP) PO SCH (10:03)
[2023-02-17] MEDS: ASPIRIN COATED 81 MG TABLET.EC PO SCH (10:04)
[2023-02-17] MEDS: FAMOTIDINE 20 MG TABLET PO SCH (10:04)
[2023-02-17] MEDS: CITALOPRAM HYDROBROMIDE 20 MG TABLET PO SCH (10:04)
[2023-02-17] MEDS: CALCIUM 500MG/VIT-D 200 UNITS COMBO TABLET (FP) PO SCH ×2 (10:04→21:13)
[2023-02-17] MEDS: NICOTINE 14 MG/24 HOURS TOPICAL PATCH TD SCH (10:07)
[2023-02-17] MEDS: METHYL SALICYLATE/MENTHOL OINT 30 GM TUBE TP PRN (10:23)
[2023-02-17] MEDS: ATORVASTATIN CA 40 MG TABLET (FP) PO SCH (21:13)
[2023-02-17] MEDS: QUEtiapine FUMARATE 50 MG TABLET PO SCH (21:13)
[2023-02-17] MEDS: MELATONIN 5 MG TABLETS PO SCH (21:13)
[2023-02-17] MEDS: THIAMINE HCL 100 MG TABLET (FP) PO SCH (21:13)
[2023-02-18] MEDS: LISINOPRIL 10 MG TABLET PO SCH (06:04)
[2023-02-18] MEDS: amLODIPine BESYLATE 5 MG TABLET (FP) PO SCH (06:04)
[2023-02-18] MEDS: PRENATAL VITAMINS W/ FOLIC ACID TABLET (FP) PO SCH (10:10)
[2023-02-18] MEDS: CALCIUM 500MG/VIT-D 200 UNITS COMBO TABLET (FP) PO SCH ×2 (10:10→21:28)
[2023-02-18] MEDS: CITALOPRAM HYDROBROMIDE 20 MG TABLET PO SCH (10:10)
[2023-02-18] MEDS: ASPIRIN COATED 81 MG TABLET.EC PO SCH (10:10)
[2023-02-18] MEDS: FAMOTIDINE 20 MG TABLET PO SCH (10:10)
[2023-02-18] MEDS: NICOTINE 14 MG/24 HOURS TOPICAL PATCH TD SCH (10:10)
[2023-02-18] MEDS: ATORVASTATIN CA 40 MG TABLET (FP) PO SCH (21:28)
[2023-02-18] MEDS: QUEtiapine FUMARATE 50 MG TABLET PO SCH (21:28)
[2023-02-18] MEDS: THIAMINE HCL 100 MG TABLET (FP) PO SCH (21:28)
[2023-02-18] MEDS: MELATONIN 5 MG TABLETS PO SCH (21:28)
[2023-02-19] MEDS: amLODIPine BESYLATE 5 MG TABLET (FP) PO SCH (06:24)
[2023-02-19] MEDS: LISINOPRIL 10 MG TABLET PO SCH (06:24)
[2023-02-19] MEDS: ASPIRIN COATED 81 MG TABLET.EC PO SCH (10:07)
[2023-02-19] MEDS: NICOTINE 14 MG/24 HOURS TOPICAL PATCH TD SCH (10:07)
[2023-02-19] MEDS: CITALOPRAM HYDROBROMIDE 20 MG TABLET PO SCH (10:07)
[2023-02-19] MEDS: CALCIUM 500MG/VIT-D 200 UNITS COMBO TABLET (FP) PO SCH ×2 (10:07→21:05)
[2023-02-19] MEDS: FAMOTIDINE 20 MG TABLET PO SCH (10:07)
[2023-02-19] MEDS: PRENATAL VITAMINS W/ FOLIC ACID TABLET (FP) PO SCH (10:07)
[2023-02-19] MEDS: ATORVASTATIN CA 40 MG TABLET (FP) PO SCH (21:05)
[2023-02-19] MEDS: THIAMINE HCL 100 MG TABLET (FP) PO SCH (21:05)
[2023-02-19] MEDS: QUEtiapine FUMARATE 50 MG TABLET PO SCH (21:05)
[2023-02-19] MEDS: MELATONIN 5 MG TABLETS PO SCH (21:06)
[2023-02-20] MEDS: amLODIPine BESYLATE 5 MG TABLET (FP) PO SCH (07:03)
[2023-02-20] MEDS: LISINOPRIL 10 MG TABLET PO SCH (07:04)
[2023-02-20] MEDS: PRENATAL VITAMINS W/ FOLIC ACID TABLET (FP) PO SCH (10:15)
[2023-02-20] MEDS: CALCIUM 500MG/VIT-D 200 UNITS COMBO TABLET (FP) PO SCH ×2 (10:15→21:21)
[2023-02-20] MEDS: FAMOTIDINE 20 MG TABLET PO SCH (10:15)
[2023-02-20] MEDS: ASPIRIN COATED 81 MG TABLET.EC PO SCH (10:15)
[2023-02-20] MEDS: CITALOPRAM HYDROBROMIDE 20 MG TABLET PO SCH (10:15)
[2023-02-20] MEDS: NICOTINE 14 MG/24 HOURS TOPICAL PATCH TD SCH (10:16)
[2023-02-20] MEDS: METHYL SALICYLATE/MENTHOL OINT 30 GM TUBE TP PRN (10:34)
[2023-02-20] MEDS: ACETAMINOPHEN 325 MG TABLET (FP) PO PRN (10:39)
[2023-02-20] MEDS: THIAMINE HCL 100 MG TABLET (FP) PO SCH (21:21)
[2023-02-20] MEDS: MELATONIN 5 MG TABLETS PO SCH (21:21)
[2023-02-20] MEDS: ATORVASTATIN CA 40 MG TABLET (FP) PO SCH (21:21)
[2023-02-20] MEDS: QUEtiapine FUMARATE 50 MG TABLET PO SCH (21:21)
[2023-02-21] MEDS: amLODIPine BESYLATE 5 MG TABLET (FP) PO SCH (06:25)
[2023-02-21] MEDS: LISINOPRIL 10 MG TABLET PO SCH (06:25)
[2023-02-21] MEDS: CITALOPRAM HYDROBROMIDE 20 MG TABLET PO SCH (10:19)
[2023-02-21] MEDS: PRENATAL VITAMINS W/ FOLIC ACID TABLET (FP) PO SCH (10:19)
[2023-02-21] MEDS: NICOTINE 14 MG/24 HOURS TOPICAL PATCH TD SCH (10:20)
[2023-02-21] MEDS: FAMOTIDINE 20 MG TABLET PO SCH (10:20)
[2023-02-21] MEDS: ASPIRIN COATED 81 MG TABLET.EC PO SCH (10:20)
[2023-02-21] MEDS: CALCIUM 500MG/VIT-D 200 UNITS COMBO TABLET (FP) PO SCH ×2 (10:20→21:25)
[2023-02-21] MEDS: ATORVASTATIN CA 40 MG TABLET (FP) PO SCH (21:25)
[2023-02-21] MEDS: QUEtiapine FUMARATE 50 MG TABLET PO SCH (21:25)
[2023-02-21] MEDS: MELATONIN 5 MG TABLETS PO SCH (21:25)
[2023-02-21] MEDS: THIAMINE HCL 100 MG TABLET (FP) PO SCH (21:25)
[2023-02-22] MEDS: LISINOPRIL 10 MG TABLET PO SCH (05:55)
[2023-02-22] MEDS: amLODIPine BESYLATE 5 MG TABLET (FP) PO SCH (05:56)
[2023-02-22] MEDS: CITALOPRAM HYDROBROMIDE 20 MG TABLET PO SCH (10:04)
[2023-02-22] MEDS: PRENATAL VITAMINS W/ FOLIC ACID TABLET (FP) PO SCH (10:04)
[2023-02-22] MEDS: FAMOTIDINE 20 MG TABLET PO SCH (10:04)
[2023-02-22] MEDS: ASPIRIN COATED 81 MG TABLET.EC PO SCH (10:04)
[2023-02-22] MEDS: NICOTINE 14 MG/24 HOURS TOPICAL PATCH TD SCH (10:04)
[2023-02-22] MEDS: CALCIUM 500MG/VIT-D 200 UNITS COMBO TABLET (FP) PO SCH ×2 (10:05→21:46)
[2023-02-22] MEDS: METHYL SALICYLATE/MENTHOL OINT 30 GM TUBE TP PRN (12:27)
[2023-02-22] MEDS: MELATONIN 5 MG TABLETS PO SCH (21:41)
[2023-02-22] MEDS: THIAMINE HCL 100 MG TABLET (FP) PO SCH (21:42)
[2023-02-22] MEDS: QUEtiapine FUMARATE 50 MG TABLET PO SCH (21:43)
[2023-02-22] MEDS: ATORVASTATIN CA 40 MG TABLET (FP) PO SCH (21:43)
[2023-02-23] MEDS: amLODIPine BESYLATE 5 MG TABLET (FP) PO SCH (05:51)
[2023-02-23] MEDS: LISINOPRIL 10 MG TABLET PO SCH (05:51)
[2023-02-23] MEDS: CALCIUM 500MG/VIT-D 200 UNITS COMBO TABLET (FP) PO SCH ×2 (09:42→21:40)
[2023-02-23] MEDS: NICOTINE 14 MG/24 HOURS TOPICAL PATCH TD SCH (09:42)
[2023-02-23] MEDS: FAMOTIDINE 20 MG TABLET PO SCH (09:42)
[2023-02-23] MEDS: ASPIRIN COATED 81 MG TABLET.EC PO SCH (09:42)
[2023-02-23] MEDS: PRENATAL VITAMINS W/ FOLIC ACID TABLET (FP) PO SCH (09:42)
[2023-02-23] MEDS: CITALOPRAM HYDROBROMIDE 20 MG TABLET PO SCH (09:42)
[2023-02-23] MEDS: QUEtiapine FUMARATE 50 MG TABLET PO SCH (21:40)
[2023-02-23] MEDS: ATORVASTATIN CA 40 MG TABLET (FP) PO SCH (21:40)
[2023-02-23] MEDS: THIAMINE HCL 100 MG TABLET (FP) PO SCH (21:40)
[2023-02-23] MEDS: MELATONIN 5 MG TABLETS PO SCH (21:42)
[2023-02-24] MEDS: LISINOPRIL 10 MG TABLET PO SCH (06:08)
[2023-02-24] MEDS: amLODIPine BESYLATE 5 MG TABLET (FP) PO SCH (06:08)
[2023-02-24 07:13] VITALS: TEMP 97.7
[2023-02-24] MEDS: CITALOPRAM HYDROBROMIDE 20 MG TABLET PO SCH (09:50)
[2023-02-24] MEDS: ASPIRIN COATED 81 MG TABLET.EC PO SCH (09:50)
[2023-02-24] MEDS: CALCIUM 500MG/VIT-D 200 UNITS COMBO TABLET (FP) PO SCH (09:50)
[2023-02-24] MEDS: FAMOTIDINE 20 MG TABLET PO SCH (09:50)
[2023-02-24] MEDS: PRENATAL VITAMINS W/ FOLIC ACID TABLET (FP) PO SCH (09:50)
[2023-02-24] MEDS: NICOTINE 14 MG/24 HOURS TOPICAL PATCH TD SCH (09:53)
[2023-02-24 11:20] VITALS: BP 100/64; PULSE 88
== END 2023-02-24 10:15 | disposition home or self-care (01) | DRG 895 ==
LOC: YASAS 10:30 → Y5N 15:48
PROVIDERS: ADMIT Allergy & Immunology; ATTEND Psychiatry & Neurology Pain Medicine
PROC: HZ42ZZZ Group Counseling for Substance Abuse Treatment, Cognitive-Behavioral (ICD-10-PCS; principal; 2023-02-03)
DX: F10.20 Alcohol dependence, uncomplicated (principal); F14.20 Cocaine dependence, uncomplicated; F19.282 Other psychoactive substance dependence with psychoactive substance-induced sleep disorder; F17.210 Nicotine dependence, cigarettes, uncomplicated; F19.24 Other psychoactive substance dependence with psychoactive substance-induced mood disorder; I10 Essential (primary) hypertension; J45.20 Mild intermittent asthma, uncomplicated; K21.9 Gastro-esophageal reflux disease without esophagitis; G47.30 Sleep apnea, unspecified; Z86.73 Personal history of transient ischemic attack (TIA), and cerebral infarction without residual deficits; Z85.819 Personal history of malignant neoplasm of unspecified site of lip, oral cavity, and pharynx
CPT/HCPCS: 36415; 80053; 80307; 81003; 85027; 86780; 87635